=== PATIENT | female | born 1975 | race Caucasian/White ===

== ENCOUNTER 2016-06-05 12:21 | Emergency (ER) | payer MEDICAID, OTHER ==
[2016-06-05 12:28] VITALS: BP 133/83
[2016-06-05] MEDS ORDERED: Ketorolac INJ* 60 MG/2 ML VIAL IM ONE (13:33)
--- NOTE | 2016-06-10 22:16 | ED ---
Throat Pain/Nasal Congestion - HPI Summary HPI Summary: Pt here w/ B/L otalgia x 3 days. Here because she can't control the pain and now has otorrhea. Has tried garlic drops and tylenol w/o relief. Hearing is muffled. Denies ST, sinus pressure, rhinorrhea, cough, n/v/d, rash. No trauma to ears. - History of Current Complaint Chief Complaint: EDEarPain Time Seen by Provider: 06/05/16 12:47 Hx Obtained From: Patient - Allergies/Home Medications Allergies/Adverse Reactions: Allergies Allergy/AdvReac Type Severity Reaction Status Date / Time No Known Allergies Allergy Verified 08/25/15 21:31 PMH/Surg Hx/FS Hx/Imm Hx Previously Healthy: Yes Endocrine/Hematology History: Denies: Autoimmune Disease Respiratory History: Reports: Hx Asthma, Hx Chronic Bronchitis, Hx Pneumonia Sensory History: Denies: Hx Hearing Problem Infectious Disease History: No Infectious Disease History: Denies: Traveled Outside the [place] in Last 30 Days - Family History Known Family History: Positive: None - reviewed & noncontributory - Social History Alcohol Use: None Hx Substance Use: No Substance Use Type: Reports: None Hx Tobacco Use: Yes Smoking Status (MU): Current Every Day Smoker Review of Systems Negative: Fever, Chills Eyes: Negative ENT: Other - see HPI Negative: Chest Pain Negative: Shortness Of Breath, Cough Gastrointestinal: Negative Positive: no symptoms reported Musculoskeletal: Other - denies neck pain Negative: Rash Neurological: Negative Psychological: Normal All Other Systems Reviewed And Are Negative: Yes Physical Exam Triage Information Reviewed: Yes Vital Signs On Initial Exam: Initial Vitals Temp Pulse Resp BP Pulse Ox 97.9 F 84 18 133/83 100 06/05/16 12:24 06/05/16 12:24 06/05/16 12:24 06/05/16 12:24 06/05/16 12:24 Vital Signs Reviewed: Yes Appearance: Positive: Well-Appearing, No Pain Distress - has a one time pain attack - lasts a few minutes then dissipates, Well-Nourished Skin: Positive: Warm, Dry - no erythema of pinna or scalp Head/Face: Positive: Normal Head/Face Inspection - sinuses NTTP Eyes: Positive: Normal, EOMI, Conjunctiva Clear. Negative: Conjunctiva Inflammed, Discharge ENT: Positive: Hearing grossly normal, Pharynx normal, TM red - otorrhea w/ purulent pink tinged fluid w/ bubbles overlying B/L TM's. Negative: Nasal congestion, Nasal drainage Dental: Negative: Abscess @ Neck: Positive: Supple, Enlarged Nodes @ - cc Ln's (mild) Respiratory/Lung Sounds: Positive: Clear to Auscultation, Breath Sounds Present. Negative: Rales, Rhonchi, Wheezes Cardiovascular: Positive: Normal, RRR Abdomen Description: Positive: Nontender, Soft Bowel Sounds: Positive: Present Musculoskeletal: Positive: Normal, Strength/ROM Intact Neurological: Positive: Normal, Sensory/Motor Intact, Alert, Oriented to Person Place, Time, CN Intact II-III Psychiatric: Positive: Normal Diagnostics - Vital Signs Vital Signs Temp Pulse Resp BP Pulse Ox 06/05/16 14:01 99.2 F 74 16 06/05/16 12:24 97.9 F 84 18 133/83 100 - Laboratory Lab Statement: Any lab studies that have been ordered have been reviewed, and results considered in the medical decision making process. EENT Course/Dx - Diagnoses Provider Diagnoses: Acute serous otitis media of both ears Discharge - Discharge Plan Condition: Stable Disposition: HOME Prescriptions: Amoxicillin/Clavulanate TAB* [Augmentin TAB 875*] 875 mg PO BID #20 tab Ciprofloxacin HCl (Otic) [Cetraxal] 0.2 % OT Q12HR #1 bottle Ketorolac TAB (NF) [Toradol TAB (NF)] 10 mg PO Q6H #20 tab Patient Education Materials: Serous Otitis Media (ED) Referrals: Gary Hensley MD [Medical Doctor] - No Primary Care Phys,NOPCP [Primary Care Provider] - Additional Instructions: Follow-up with ENT this week - call Monday to schedule an appointment. *If you develop severe headache, hearing loss, change in balance, fever, difficulty swallowing/breathing, return to ED
== END 2016-06-05 14:01 | disposition home or self-care (01) ==
LOC: ED 12:21
DX: H65.03 Acute serous otitis media, bilateral (principal); F17.200 Nicotine dependence, unspecified, uncomplicated
CPT/HCPCS: 96372; 99282; J1885

== ENCOUNTER 2016-11-17 11:21 | Emergency (ER) | payer SELFPAY ==
--- NOTE | 2016-11-17 15:51 | ED ---
HPI Cardiac - HPI Summary HPI Summary: Pt here w/ cough x 2 weeks. Started as URI - ST, head/nasal congestion - then went into chest w/ cough. Has not tried anything for cough. H/o bronchitis and pneumonia once. Has required albuterol inhaler in the past. Smokes - wants to quit - would like to try a patch while she's here today. Smokes "a couple a day ". - History of Current Complaint Chief Complaint: EDGeneral Stated Complaint: CHEST COLD Time Seen by Provider: 11/17/16 13:32 Hx Obtained From: Patient Pain Intensity: 2 - Allergy/Home Medications Allergies/Adverse Reactions: Allergies Allergy/AdvReac Type Severity Reaction Status Date / Time No Known Allergies Allergy Verified 11/29/16 16:53 PMH/Surg Hx/FS Hx/Imm Hx Previously Healthy: Yes Endocrine/Hematology History: Denies: Autoimmune Disease Respiratory History: Reports: Hx Asthma, Hx Chronic Bronchitis, Hx Pneumonia Sensory History: Denies: Hx Hearing Problem Infectious Disease History: No Infectious Disease History: Denies: Traveled Outside the in Last 30 Days - Social History Alcohol Use: None Hx Substance Use: No Substance Use Type: Reports: None Hx Tobacco Use: Yes Smoking Status (MU): Current Every Day Smoker Amount Used/How Often: "a couple a day" Review of Systems Constitutional: Negative Negative: Fever, Chills ENT: Other - see HPI Negative: Chest Pain Respiratory: Other - see HPI Gastrointestinal: Negative Negative: Abdominal Pain, Vomiting, Diarrhea, Nausea Positive: no symptoms reported Musculoskeletal: Negative Skin: Negative Negative: Rash Neurological: Negative Psychological: Other - seE HPI All Other Systems Reviewed And Are Negative: Yes Physical Exam Triage Information Reviewed: Yes Vital Signs On Initial Exam: Initial Vitals Temp Pulse Resp BP Pulse Ox 98.6 F 92 22 126/80 98 11/17/16 11:23 11/17/16 11:23 11/17/16 11:23 11/17/16 11:23 11/17/16 11:23 Vital Signs Reviewed: Yes Appearance: Positive: Well-Appearing, No Pain Distress, Well-Nourished Skin: Positive: Warm, Dry Head/Face: Positive: Normal Head/Face Inspection - SINUSES nttp Eyes: Positive: Normal, EOMI, Conjunctiva Clear. Negative: Conjunctiva Inflammed, Discharge ENT: Positive: Hearing grossly normal, Pharynx normal, Nasal congestion, Nasal drainage - CLEAR, TMs normal Neck: Positive: Supple, Nontender, No Lymphadenopathy Respiratory/Lung Sounds: Positive: Clear to Auscultation, Breath Sounds Present. Negative: Rales, Rhonchi, Wheezes Cardiovascular: Positive: Normal, RRR Abdomen Description: Positive: Nontender, Soft Bowel Sounds: Positive: Present Musculoskeletal: Positive: Normal, Strength/ROM Intact Neurological: Positive: Normal, Sensory/Motor Intact, Alert, Oriented to Person Place, Time, CN Intact II-III Psychiatric: Positive: Normal Diagnostics - Vital Signs Vital Signs Temp Pulse Resp BP Pulse Ox 11/17/16 13:30 98.6 F 92 22 126/80 97 11/17/16 11:23 98.6 F 92 22 126/80 98 - Laboratory Lab Statement: Any lab studies that have been ordered have been reviewed, and results considered in the medical decision making process. Disposition - Diagnoses Provider Diagnoses: Bronchitis, Tobacco abuse Discharge - Discharge Plan Condition: Stable Disposition: HOME Prescriptions: Albuterol HFA INHALER* [Ventolin HFA Inhaler*] 2 puff INH Q6H PRN #1 mdi PRN Reason: Cough Patient Education Materials: How to Stop Smoking (ED), Acute Bronchitis (ED) Referrals: [facility] [Outside] No Primary Care Phys,NOPCP [Primary Care Provider] - Additional Instructions: Rest, fluids Avoid potential triggers - candles, smoke, perfumes, etc Use albuterol inhaler as needed Delsym cough suppressant You may also try the following: Nasal wash (netti pot) & throat gargle 2 x day with 8 ounces of warm water + 1/ 4 teaspoon of salt Drink 60+ ounces of water daily Sleep 8+ hours per night Avoid Dairy and sugar Hot herbal/decaf tea with lemon & honey Chicken broth (preferably organic, free range chicken) Cough lozenges Consider taking Vitamin C 1,000mg every day during illness Follow-up with PCP *if you develop fever, bloody cough, shortness of breath, chest pain, return to ED
[2016-11-17 16:18] LABS: UR Preg Internal Control QC Line Present
[2016-11-17 16:28] LABS: Manual Entry Verification MER0007
[2016-11-17 17:12] VITALS: BP 116/75
--- NOTE | 2016-11-17 17:38 | RAD ---
INDICATION: Cough x2 weeks COMPARISON: Similar chest x-ray dated August 30, 2015 TECHNIQUE: PA and lateral views of the chest were obtained. FINDINGS: The heart and mediastinum are normal in size and contour. The lungs are grossly clear. There is no evidence of large pleural effusion. Visualized bones are normal for the patient's age. There is no radiographic evidence of free air beneath the diaphragm IMPRESSION: No radiographic evidence of acute cardiopulmonary disease.
[2016-11-18] MEDS ORDERED: Nicotine PATCH 7 MG/24 HR* PATCH TRANSDERM ONE (15:29)
== END 2016-11-17 17:04 | disposition home or self-care (01) ==
LOC: ED 11:21
DX: R05 Cough (principal)
CPT/HCPCS: 71020; 81025; 99282; A9270-GY

== ENCOUNTER 2016-11-29 02:08 | Inpatient (IN) | payer MEDICAID ==
--- NOTE | 2016-11-29 02:17 | ED ---
Juliet Romo Edward, scribed for Daniele Grande MD on 11/29/16 at 0210 . Psychiatric Complaint - HPI Summary HPI Summary: 41 y/o female presents to ED c/o SI. Pt states that she has been going through a hard time with some people in her life and she feels like she just wants to . Pt states that she sees a therapist at this time - History Of Current Complaint Hx Obtained From: Patient Character: Depressed Aggravating Factor(s): Recent Stress - tough time with some people Has Suicidal: Reports: Thoughts - Allergies/Home Medications Allergies/Adverse Reactions: Allergies Allergy/AdvReac Type Severity Reaction Status Date / Time No Known Allergies Allergy Verified 08/25/15 21:31 PMH/Surg Hx/FS Hx/Imm Hx Previously Healthy: No Respiratory History: Reports: Hx Asthma, Hx Chronic Bronchitis, Hx Pneumonia Sensory History: Denies: Hx Hearing Problem - Family History Known Family History: Positive: Other - Mother - hx of ovarian cysts - Social History Alcohol Use: None Hx Substance Use: No Substance Use Type: Reports: None Hx Tobacco Use: Yes Smoking Status (MU): Current Every Day Smoker Amount Used/How Often: "a couple a day" Review of Systems Constitutional: Negative Eyes: Negative ENT: Negative Cardiovascular: Negative Respiratory: Negative Gastrointestinal: Negative Genitourinary: Negative Musculoskeletal: Negative Skin: Negative Neurological: Negative Positive: Depressed - SI All Other Systems Reviewed And Are Negative: Yes Physical Exam Triage Information Reviewed: Yes Vital Signs On Initial Exam: Initial Vitals Temp Pulse Resp BP Pulse Ox 98.1 F 73 16 121/81 99 11/29/16 02:13 11/29/16 02:13 11/29/16 02:13 11/29/16 02:13 11/29/16 02:13 Vital Signs Reviewed: Yes Appearance: Positive: Well-Appearing, No Pain Distress Skin: Positive: Warm Head/Face: Positive: Normal Head/Face Inspection Eyes: Positive: GRACIA ENT: Positive: Hearing grossly normal Neck: Positive: Supple Respiratory/Lung Sounds: Positive: Breath Sounds Present Cardiovascular: Positive: RRR Abdomen Description: Positive: Nontender, Soft Bowel Sounds: Positive: Present Musculoskeletal: Positive: Strength/ROM Intact Neurological: Positive: Alert, Oriented to Person Place, Time Psychiatric: Positive: Affect/Mood Appropriate Diagnostics - Vital Signs Vital Signs Temp Pulse Resp BP Pulse Ox 11/29/16 02:13 98.1 F 73 16 121/81 99 - Laboratory Result Diagrams: 11/29/16 02:44 11/29/16 02:44 Lab Statement: Any lab studies that have been ordered have been reviewed, and results considered in the medical decision making process. Course/Dx - Course Assessment/Plan: 41 y/o female presents to ED c/o depression and SI. Pt cleared for MHU evaluation. After assessment by the MHU manager validation, the pt will be volunatrily admitted [place] [facility] - Differential Dx/Clinical Impression Provider Diagnosis: Suicidal ideations - Physician Notifications Instructed by Provider To: Admit As Inpatient Discharge - Discharge Plan Condition: Fair Disposition: ADMITTED TO [facility] The documentation as recorded by the Juliet mccarthy Edward accurately reflects the service I personally performed and the decisions made by , Daniele Grande MD.
[2016-11-29 03:01] LABS: Urine Bacteria Absent (Absent); Urine Bilirubin Negative (Negative); Urine Glucose Negative (Negative); Urine Nitrite Negative (Negative)
[2016-11-29 03:07] LABS: Hematocrit 35 % (35-47); Hemoglobin 11.7 g/dl (12.0-16.0); Mean Corpuscular HGB Conc 33 g/dl (31-36); Mean Corpuscular Hemoglobin 31 pg (27-31); Mean Corpuscular Volume 92 fL (80-97); Mean Platelet Volume 9 um3 (7.4-10.4); Red Cell Distribution Width 14 % (10.5-15); White Blood Count 8.8 10^3/ul (3.5-10.8)
[2016-11-29 03:10] LABS: ALT 8 U/L (7-52); AST 8 U/L (13-39); Albumin 3.5 g/dL (3.2-5.2); Alkaline Phosphatase 41 U/L (34-104); Calcium 8.8 mg/dL (8.6-10.3); Glucose 93 mg/dL (70-100)
[2016-11-29 03:21] LABS: Benzodiazepine Urine Screen None Detected (None Detect)
[2016-11-29 03:21] LABS: Anion Gap 4 mmol/L (2-11); BUN/Creatinine Ratio 19.2 (8-20); Blood Urea Nitrogen 15 mg/dL (6-24); CO2 Carbon Dioxide 26 mmol/L (22-32); Chloride 106 mmol/L (101-111); EGFR African American 105.7 (>60); EGFR Non-African American 82.2 (>60); Globulin 2.4 g/dL (2-4); Potassium 3.6 mmol/L (3.5-5.0); Sodium 136 mmol/L (133-145); Total Protein 5.9 g/dL (6.4-8.9)
[2016-11-29 03:29] LABS: Acetaminophen < 15 mcg/mL; Alcohol < 10 mg/dL (<10); Salicylate < 2.50 mg/dL (<30)
[2016-11-29 03:40] LABS: TSH (Thyroid Stimulating Horm) 1.94 mcIU/mL (0.34-5.60)
[2016-11-29] MEDS: Vitamin THERAPEUTIC TAB PO SCH (09:38)
[2016-11-29] MEDS: Acetaminophen TAB* 325 MG PO PRN (11:30)
[2016-11-29] MEDS: ARIPiprazole TAB* 5 MG PO SCH (13:30)
[2016-11-29] MEDS: VORTIOXETINE 5 MG PO SCH (13:30)
[2016-11-29] MEDS: Mouth Piece, Nicotine* 1 EACH CARTRIDGE INH SCH (19:24)
[2016-11-29] MEDS: Nicotine Inhaler* 10 MG AMP INH PRN (19:25)
[2016-11-29] MEDS: hydrOXYzine HCL TAB* 50 MG PO PRN (19:25)
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
[2016-11-30] MEDS: ARIPiprazole TAB* 5 MG PO SCH (09:27)
[2016-11-30] MEDS: Vitamin THERAPEUTIC TAB PO SCH (09:27)
[2016-11-30] MEDS: VORTIOXETINE 5 MG PO SCH (09:51)
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
[2016-11-30] MEDS: Acetaminophen TAB* 325 MG PO PRN (11:32)
[2016-11-30] MEDS: FLUoxetine CAP* 10 MG PO SCH (11:59)
[2016-11-30] MEDS: hydrOXYzine HCL TAB* 50 MG PO PRN (18:27)
[2016-12-01] MEDS: FLUoxetine CAP* 10 MG PO SCH (08:42)
[2016-12-01] MEDS: Vitamin THERAPEUTIC TAB PO SCH (08:42)
[2016-12-01 08:58] LABS: HDL Cholesterol 41.3 mg/dL
[2016-12-01] MEDS ORDERED: ARIPiprazole TAB* 5 MG PO SCH (09:00)
--- NOTE | 2016-12-01 11:51 | PN ---
Subjective - Subjective Subjective: Diana is lying in her bed awake. She agrees to interview. She states she is feeling like she has nothing to look forward to. She states "I can't trust anyone" and "they took everything." She has not performed ADLs. She is present for meals but not groups. She reports poor sleep due to "someone talking in my head." She states she is going to kill herself as soon as she is discharged. Objective - Appearance Appearance: Thin Framed Dysmorphic Features: Yes Hygiene: Dirty Grooming: Disheveled - Behavior Psychomotor Activities: Normal Exhibits Abnormal Movement: No - Attitude and Relatedness Attitude and Relatedness: Psychotically Related Eye Contact: Fair - Speech Quality: Pressured Latencies: Normal Quantity: Terse - Mood Patient's Decription of Mood: "I have nothing to look forward to" - Affect Observed Affect: Labile Affect Consistent with: Dysphoria - Thought Process Patient's Thought Process: Disorganized, Tangential Thought Content: Yes Passive Wish, Yes Suicidal Planning, Yes Paranoid Ideation, No Homicidal Ideation - Sensorium Experiencing Hallucinations: Yes Type of Hallucinations: Visual: No, Auditory: Yes, Command: No - Level of Consciousness Level of Consciousness: Alert Orientation: Yes Intact, Yes Orientated to Time, Yes Orientated to Place, Yes Orientated to Person - Impulse Control Impulse Control: Impaired - Insight and Judgement Insight and Judgement: Poor - Group Participation Particating in Group Activities: No Assessment - Assessment Merits Inpatient Hospitalization: For Immediate Safety, For Stabilization, Pending Safe DC Plan Inpatient DSM-IV Dx: schizoaffective d/o Clinical Impression: Diana is a 41yo female with history of psychosis and substance use. Her toxicology was negative in the ED. She has been intermittently present at [facility] and has had multiple brief psychiatric hospitalizations in the [facility]. Diana continues to present as disorganized, paranoid and labile. She is expressing active suicidal ideation. Plan - Plan Treatment Plan: Name: DIANA LIN Birthdate: 1975 [id number] Will continue to titrate aripiprazole and assess for improvement in psychosis/ suicidality. She is encouraged to perform ADLs and utilize prn medications. Discharge planning to include mother and consider transfer to state hospitalization if no improvement. Continued Medication Management: Different Medication Medications: Current Medications Acetaminophen (Tylenol Tab*) 650 mg PO Q4H PRN PRN Reason: PAIN or TEMP > 101 F Last Admin: 11/30/16 11:32 Dose: 650 mg Al Hydrox/Mg Hydrox/Simethicone (Maalox Plus*) 30 ml PO Q4H PRN PRN Reason: INDIGESTION Aripiprazole (Abilify Tab*) 5 mg PO ONCE ONE Stop: 12/01/16 21:01 Aripiprazole (Abilify Tab*) 15 mg PO DAILY [facility] Device (Nicotine Mouth Piece*) 1 each INH .CARTRIDGE [facility] Last Admin: 11/29/16 19:24 Dose: 1 each Fluoxetine HCl (Prozac Cap*) 10 mg PO DAILY [facility] Last Admin: 12/01/16 08:42 Dose: 10 mg Hydroxyzine HCl (Atarax Tab*) 50 mg PO Q6H PRN PRN Reason: ANXIETY/INSOMNIA Last Admin: 11/30/16 18:27 Dose: 50 mg Multivitamins (Theragran Tab*) 1 tab PO DAILY [facility] Last Admin: 12/01/16 08:42 Dose: 1 tab Nicotine (Nicotine Inhaler*) 10 mg INH Q2H PRN PRN Reason: CRAVING Last Admin: 11/29/16 19:25 Dose: 10 mg Trazodone HCl (Desyrel Tab*) 50 mg PO BEDTIME PRN PRN Reason: INSOMNIA - Discharge Plan Discharge Plan: Consider Longer Term Tx Outpatient Program: [facility]
[2016-12-01] MEDS: hydrOXYzine HCL TAB* 50 MG PO PRN (12:55)
[2016-12-01] MEDS: Acetaminophen TAB* 325 MG PO PRN (15:44)
[2016-12-01] MEDS ORDERED: ARIPiprazole TAB* 5 MG PO ONE (21:00)
[2016-12-01] MEDS: traZODone TAB* 50 MG TAB PO PRN (21:10)
[2016-12-02] MEDS: Vitamin THERAPEUTIC TAB PO SCH (10:04)
[2016-12-02] MEDS: FLUoxetine CAP* 10 MG PO SCH (10:04)
[2016-12-02] MEDS: ARIPiprazole TAB* 15 MG PO SCH (10:04)
--- NOTE | 2016-12-02 12:07 | PN ---
Subjective - Subjective Subjective: Diana continues to have labile presentation. She is seclusive to her room, present for meals. Staff has witnessed her having conversations to herself in her room. She has not completed ADLs. She reports plans to shower today after "my layton is done" and refers to menstrual cycle. She reports "I have nothing to look forward to" and continues to endorse persecutory delusions. She brightens when talking about hospital food. When she was encouraged to attend programming, she is tearful again and expressed "nothing to live for." Patient reports she is sleeping better and that nightmares are not as prevalent. Objective - Appearance Appearance: Well Developed/Nourished Dysmorphic Features: Yes Hygiene: Dirty Grooming: Disheveled - Behavior Psychomotor Activities: Normal Exhibits Abnormal Movement: No - Attitude and Relatedness Attitude and Relatedness: Psychotically Related Eye Contact: Fair - Speech Quality: Unpressured Latencies: Normal Quantity: Appropriate - Mood Patient's Decription of Mood: "Terrible" - Affect Observed Affect: Labile Affect Consistent with: Dysphoria - Thought Process Patient's Thought Process: Disorganized, Tangential Thought Content: Yes Passive Wish, Yes Suicidal Planning, No Homicidal Ideation, No Paranoid Ideation - Sensorium Experiencing Hallucinations: Yes Type of Hallucinations: Visual: Yes, Auditory: Yes, Command: No - Level of Consciousness Level of Consciousness: Alert Orientation: Yes Intact, Yes Orientated to Time, Yes Orientated to Place, Yes Orientated to Person - Impulse Control Impulse Control: Poor - Insight and Judgement Insight and Judgement: Poor - Group Participation Particating in Group Activities: No - Medication Management Medication Management Adherence: Yes Assessment - Assessment Inpatient DSM-IV Dx: schizoaffective d/o Clinical Impression: Diana is a 41yo female with history of psychosis and substance use. Her toxicology was negative in the ED. She has been intermittently present at [facility] and has had multiple brief psychiatric hospitalizations in the [facility] region. Diana continues to present as disorganized, paranoid and labile. She is medication compliant but seclusive to self. Plan - Plan Treatment Plan: Name: DIANA ILN Birthdate: 1975 [id number] Will continue to titrate aripiprazole and assess for improvement in psychosis/ suicidality. She is encouraged to perform ADLs and utilize prn medications. Discharge planning to include mother and consider transfer to state hospitalization if no improvement. Continued Medication Management: Consider Medication Medications: Current Medications Acetaminophen (Tylenol Tab*) 650 mg PO Q4H PRN PRN Reason: PAIN or TEMP > 101 F Last Admin: 12/01/16 15:44 Dose: 650 mg Al Hydrox/Mg Hydrox/Simethicone (Maalox Plus*) 30 ml PO Q4H PRN PRN Reason: INDIGESTION Aripiprazole (Abilify Tab*) 15 mg PO DAILY [facility] Last Admin: 12/02/16 10:04 Dose: 15 mg Device (Nicotine Mouth Piece*) 1 each INH .CARTRIDGE [facility] Last Admin: 11/29/16 19:24 Dose: 1 each Fluoxetine HCl (Prozac Cap*) 10 mg PO DAILY [facility] Last Admin: 12/02/16 10:04 Dose: 10 mg Hydroxyzine HCl (Atarax Tab*) 50 mg PO Q6H PRN PRN Reason: ANXIETY/INSOMNIA Last Admin: 12/01/16 12:55 Dose: 50 mg Multivitamins (Theragran Tab*) 1 tab PO DAILY [facility] Last Admin: 12/02/16 10:04 Dose: 1 tab Nicotine (Nicotine Inhaler*) 10 mg INH Q2H PRN PRN Reason: CRAVING Last Admin: 11/29/16 19:25 Dose: 10 mg Trazodone HCl (Desyrel Tab*) 50 mg PO BEDTIME PRN PRN Reason: INSOMNIA Last Admin: 12/01/16 21:10 Dose: 50 mg - Discharge Plan Discharge Plan: Consider Longer Term Tx Outpatient Program: consider state hospitalization
[2016-12-02] MEDS: hydrOXYzine HCL TAB* 50 MG PO PRN (14:41)
[2016-12-02] MEDS: Acetaminophen TAB* 325 MG PO PRN (18:38)
[2016-12-02] MEDS: traZODone TAB* 50 MG TAB PO PRN (21:36)
[2016-12-03] MEDS: FLUoxetine CAP* 10 MG PO SCH (09:12)
[2016-12-03] MEDS: Vitamin THERAPEUTIC TAB PO SCH (09:12)
[2016-12-03] MEDS: ARIPiprazole TAB* 15 MG PO SCH (09:12)
[2016-12-03] MEDS: hydrOXYzine HCL TAB* 50 MG PO PRN ×2 (11:50→17:45)
--- NOTE | 2016-12-03 17:23 | PN ---
Subjective - Subjective Subjective: Diana reports that she has been catching up on sleep, endorses continued sad mood, spontaneously voices paranoid and persecutory delusions, denies SI/HI and contracts for safety. Objective - Appearance Appearance: Healthy Appearing Dysmorphic Features: No Hygiene: Normal Grooming: Disheveled - Behavior Psychomotor Activities: Normal Exhibits Abnormal Movement: No - Attitude and Relatedness Attitude and Relatedness: Psychotically Related Eye Contact: Fair - Speech Quality: Unpressured Latencies: Short Quantity: Appropriate - Mood Patient's Decription of Mood: "Sad" - Affect Observed Affect: Non-labile Affect Consistent with: Dysphoria - Thought Process Patient's Thought Process: Coherent Thought Content: Yes Paranoid Ideation, No Passive Wish, No Suicidal Planning, No Homicidal Ideation - Sensorium Experiencing Hallucinations: No, Sensorium is Clear - Level of Consciousness Level of Consciousness: Alert Orientation: Yes Intact - Impulse Control Impulse Control: Intact - Insight and Judgement Insight and Judgement: Impaired - Group Participation Particating in Group Activities: No - Medication Management Medication Management Adherence: Yes Assessment - Assessment Inpatient DSM-IV Dx: schizoaffective d/o Clinical Impression: Ongoing impaired mood and psychotic symptoms, tolerating trial of Aripiprazole. She needs continued admission for stabilization. Plan - Plan Treatment Plan: Name: DIANA LIN Birthdate: 1975 [id number] Medications: Current Medications Acetaminophen (Tylenol Tab*) 650 mg PO Q4H PRN PRN Reason: PAIN or TEMP > 101 F Last Admin: 12/02/16 18:38 Dose: 650 mg Al Hydrox/Mg Hydrox/Simethicone (Maalox Plus*) 30 ml PO Q4H PRN PRN Reason: INDIGESTION Aripiprazole (Abilify Tab*) 15 mg PO DAILY [facility] Last Admin: 12/03/16 09:12 Dose: 15 mg Device (Nicotine Mouth Piece*) 1 each INH .CARTRIDGE [facility] Last Admin: 11/29/16 19:24 Dose: 1 each Fluoxetine HCl (Prozac Cap*) 10 mg PO DAILY [facility] Last Admin: 12/03/16 09:12 Dose: 10 mg Hydroxyzine HCl (Atarax Tab*) 50 mg PO Q6H PRN PRN Reason: ANXIETY/INSOMNIA Last Admin: 12/03/16 11:50 Dose: 50 mg Multivitamins (Theragran Tab*) 1 tab PO DAILY [facility] Last Admin: 12/03/16 09:12 Dose: 1 tab Nicotine (Nicotine Inhaler*) 10 mg INH Q2H PRN PRN Reason: CRAVING Last Admin: 11/29/16 19:25 Dose: 10 mg Trazodone HCl (Desyrel Tab*) 50 mg PO BEDTIME PRN PRN Reason: INSOMNIA Last Admin: 12/02/16 21:36 Dose: 50 mg - Discharge Plan Discharge Plan: Outpatient Follow Up Outpatient Program: [facility]
[2016-12-03] MEDS: Nicotine Inhaler* 10 MG AMP INH PRN (17:45)
[2016-12-03] MEDS: traZODone TAB* 50 MG TAB PO PRN (21:30)
[2016-12-04] MEDS: FLUoxetine CAP* 10 MG PO SCH (09:06)
[2016-12-04] MEDS: ARIPiprazole TAB* 15 MG PO SCH (09:06)
[2016-12-04] MEDS: Vitamin THERAPEUTIC TAB PO SCH (09:06)
[2016-12-04] MEDS: Nicotine Inhaler* 10 MG AMP INH PRN ×2 (11:53→17:30)
[2016-12-04] MEDS: hydrOXYzine HCL TAB* 50 MG PO PRN (17:14)
[2016-12-04] MEDS: Acetaminophen TAB* 325 MG PO PRN (17:28)
[2016-12-04] MEDS: traZODone TAB* 50 MG TAB PO PRN (20:56)
[2016-12-05] MEDS: FLUoxetine CAP* 10 MG PO SCH (08:31)
[2016-12-05] MEDS: ARIPiprazole TAB* 15 MG PO SCH ×2 (08:31→21:45)
[2016-12-05] MEDS: Vitamin THERAPEUTIC TAB PO SCH (08:31)
[2016-12-05] MEDS: Nicotine Inhaler* 10 MG AMP INH PRN ×4 (08:34→18:08)
--- NOTE | 2016-12-05 10:57 | PN ---
Subjective - Subjective Subjective: Diana has been primarily seclusive to self and intermittently participating in groups. She continues to perseverate on friends who have sabotaged her. She states she is "feeling a lot better" during interview. She attributes this to doing yoga this morning and her mother getting her belongings from her apartment in [place]. Patient reports little knowledge about her diagnosis. She changes the subject to wanting to obtain housing, a job and to abstain from people who are not supportive of her. She states "I need some serious yoga in my life right now." Patient is knowledgeable about her medication regimen. She requests to take aripiprazole at bedtime due to sedation. She states hydroxyzine is ineffective and makes her "shaky." She reports past use of xanax or klonopin. She states she only used 0.25mg sparingly. Objective - Appearance Appearance: Well Developed/Nourished Dysmorphic Features: No Hygiene: Normal Grooming: Fairly Well Kept - Behavior Psychomotor Activities: Abnormal-Increased - fidgety, moves position often Exhibits Abnormal Movement: Yes - Attitude and Relatedness Attitude and Relatedness: Psychotically Related Eye Contact: Good - Speech Quality: Pressured Latencies: Normal Quantity: Copious - Mood Patient's Decription of Mood: "a lot better" - Affect Observed Affect: Fair Affect Consistent with: Euthymia - Thought Process Patient's Thought Process: Loose Associations, Tangential Thought Content: No Passive Wish, No Suicidal Planning, No Homicidal Ideation, No Paranoid Ideation - Sensorium Experiencing Hallucinations: No, Sensorium is Clear - denies AH/VH Type of Hallucinations: Visual: No, Auditory: No, Command: No - Level of Consciousness Level of Consciousness: Alert Orientation: Yes Intact, Yes Orientated to Time, Yes Orientated to Place, Yes Orientated to Person Assessment - Assessment Merits Inpatient Hospitalization: For Immediate Safety, For Stabilization, For Discharge Planning Inpatient DSM-IV Dx: schizoaffective d/o Clinical Impression: Diana is a 41yo female with history of psychosis and substance use. Her toxicology was negative in the ED. She has been intermittently present at [facility] and has had multiple brief psychiatric hospitalizations in the [facility] region. Diana continues to present as paranoid with little insight. She merits hospitalization for safety and stabilization. Plan - Plan Treatment Plan: Name: DIANA LIN Birthdate: 1975 [id number] Will continue aripiprazole and assess for improvement in psychosis. Will change from hydroxyzine to low dose clonazepam prn for anxiety/agitation. Discharge planning to include mother and consider transfer to state hospitalization if no improvement. Continued Medication Management: Different Medication Medications: Current Medications Acetaminophen (Tylenol Tab*) 650 mg PO Q4H PRN PRN Reason: PAIN or TEMP > 101 F Last Admin: 12/04/16 17:28 Dose: 650 mg Al Hydrox/Mg Hydrox/Simethicone (Maalox Plus*) 30 ml PO Q4H PRN PRN Reason: INDIGESTION Aripiprazole (Abilify Tab*) 15 mg PO BEDTIME [facility] Clonazepam (Klonopin Tab(*)) 0.5 mg PO BID PRN PRN Reason: AGITATION/ANXIETY Device (Nicotine Mouth Piece*) 1 each INH .CARTRIDGE [facility] Last Admin: 11/29/16 19:24 Dose: 1 each Fluoxetine HCl (Prozac Cap*) 10 mg PO DAILY [facility] Last Admin: 12/05/16 08:31 Dose: 10 mg Multivitamins (Theragran Tab*) 1 tab PO DAILY [facility] Last Admin: 12/05/16 08:31 Dose: 1 tab Nicotine (Nicotine Inhaler*) 10 mg INH Q2H PRN PRN Reason: CRAVING Last Admin: 12/05/16 08:34 Dose: 10 mg Trazodone HCl (Desyrel Tab*) 50 mg PO BEDTIME PRN PRN Reason: INSOMNIA Last Admin: 12/04/16 20:56 Dose: 50 mg - Discharge Plan Discharge Plan: Consider Longer Term Tx Outpatient Program: [facility]
[2016-12-05] MEDS: clonazePAM TAB(*) 0.5 MG PO PRN (12:48)
[2016-12-05] MEDS: traZODone TAB* 50 MG TAB PO PRN (21:46)
[2016-12-06] MEDS: FLUoxetine CAP* 10 MG PO SCH (08:16)
[2016-12-06] MEDS: Vitamin THERAPEUTIC TAB PO SCH (08:16)
[2016-12-06] MEDS: Nicotine Inhaler* 10 MG AMP INH PRN ×4 (08:17→18:48)
[2016-12-06] MEDS ORDERED: Mouth Piece, Nicotine* 1 EACH CARTRIDGE ONE (12:43)
[2016-12-06] MEDS: clonazePAM TAB(*) 0.5 MG PO PRN (12:44)
[2016-12-06] MEDS: Mouth Piece, Nicotine* 1 EACH CARTRIDGE INH SCH (12:44)
--- NOTE | 2016-12-06 15:02 | PN ---
Subjective - Subjective Service Type: 81360 Hosp care 15 min low complexity Subjective: Patient is pleasant and euthymic. She reports "klonopin helped a lot." She endorses decrease in anxiety and states she had restful sleep. She goes on to describe many goals for herself and states that she acknowledges that longer term hospitalization "is the best for me." She states that afterwards, she wants to pursue living in the [facility] system. She states she wants to enroll at [facility] for spring and apply for social security. Objective - Appearance Appearance: Well Developed/Nourished Dysmorphic Features: Yes Hygiene: Normal Grooming: Fairly Well Kept - Behavior Psychomotor Activities: Normal Exhibits Abnormal Movement: No - Attitude and Relatedness Attitude and Relatedness: Psychotically Related Eye Contact: Good - Speech Quality: Pressured Latencies: Normal Quantity: Appropriate - Mood Patient's Decription of Mood: "better" - Affect Observed Affect: Labile - Thought Process Patient's Thought Process: Filght of Ideas Thought Content: No Passive Wish, No Suicidal Planning, No Homicidal Ideation, No Paranoid Ideation - Sensorium Experiencing Hallucinations: No, Sensorium is Clear Type of Hallucinations: Visual: No, Auditory: No, Command: No - Level of Consciousness Level of Consciousness: Alert Orientation: Yes Intact, Yes Orientated to Time, Yes Orientated to Place, Yes Orientated to Person - Impulse Control Impulse Control: Tenuous - Insight and Judgement Insight and Judgement: Poor - Group Participation Particating in Group Activities: Yes - Medication Management Medication Management Adherence: Yes Assessment - Assessment Inpatient DSM-IV Dx: schizoaffective d/o Clinical Impression: Diana is a 41yo female with history of psychosis and substance use. Her toxicology was negative in the ED. She has been intermittently present at [facility] and has had multiple brief psychiatric hospitalizations in the [facility]. She is agreeable to a referral for joint terminal attack controller hospitalization for stabilization. Plan - Plan Treatment Plan: Name: DIANA LIN Birthdate: 1975 [id number] Will continue aripiprazole and assess for improvement in psychosis. Will continue low dose clonazepam prn for anxiety/agitation. Referral to [facility] pending for stabilization. Continued Medication Management: Start Medication Medications: Current Medications Acetaminophen (Tylenol Tab*) 650 mg PO Q4H PRN PRN Reason: PAIN or TEMP > 101 F Last Admin: 12/04/16 17:28 Dose: 650 mg Al Hydrox/Mg Hydrox/Simethicone (Maalox Plus*) 30 ml PO Q4H PRN PRN Reason: INDIGESTION Aripiprazole (Abilify Tab*) 15 mg PO BEDTIME [facility] Last Admin: 12/05/16 21:45 Dose: 15 mg Clonazepam (Klonopin Tab(*)) 0.5 mg PO BID PRN PRN Reason: AGITATION/ANXIETY Last Admin: 12/06/16 12:44 Dose: 0.5 mg Device (Nicotine Mouth Piece*) 1 each INH .CARTRIDGE [facility] Last Admin: 12/06/16 12:44 Dose: 1 each Fluoxetine HCl (Prozac Cap*) 10 mg PO DAILY [facility] Last Admin: 12/06/16 08:16 Dose: 10 mg Multivitamins (Theragran Tab*) 1 tab PO DAILY [facility] Last Admin: 12/06/16 08:16 Dose: 1 tab Nicotine (Nicotine Inhaler*) 10 mg INH Q2H PRN PRN Reason: CRAVING Last Admin: 12/06/16 12:44 Dose: 10 mg Trazodone HCl (Desyrel Tab*) 50 mg PO BEDTIME PRN PRN Reason: INSOMNIA Last Admin: 12/05/16 21:46 Dose: 50 mg - Discharge Plan Discharge Plan: Consider Longer Term Tx - referral to [facility]
[2016-12-06] MEDS: ARIPiprazole TAB* 15 MG PO SCH (20:36)
[2016-12-06] MEDS: traZODone TAB* 50 MG TAB PO PRN (20:37)
[2016-12-07] MEDS: Nicotine Inhaler* 10 MG AMP INH PRN ×3 (07:47→15:23)
[2016-12-07] MEDS: FLUoxetine CAP* 10 MG PO SCH (07:48)
[2016-12-07] MEDS: Vitamin THERAPEUTIC TAB PO SCH (07:48)
[2016-12-07] MEDS: clonazePAM TAB(*) 0.5 MG PO PRN ×2 (11:00→16:35)
--- NOTE | 2016-12-07 13:11 | PN ---
[facility]: Group Therapy Note - Service Type Service Type: [id number] Group Psychotherapy - Cognitive Behavioral Group Therapy ( CBT):Patient was attentive and participatory in CBT programming this morning, and remained in good behavioral control. Patient expressed positive insights regarding relevant treatment interventions and goals.
--- NOTE | 2016-12-07 17:22 | PN ---
Subjective - Subjective Service Type: 50142 Hosp care 15 min low complexity Subjective: Patient lying on the couch in the milieu on my approach. She is calm, cooperative, and pleasant throughout the interview. Patient is linear and GD in TP and full in affect. Patient reports ongoing improved mood on current psychotropic regimen. She denies med s/e. Patient aware transfer process to [facility] has been initiated. She is concerned about her admission and afraid she will be there for months. Patient reports desire to initiate disability applications as she has had multiple lost jobs recently due to her MH issues. She is amenable to further MH care at [facility]. She denies SI/HI and AH/VH. Patient expresses no delusional thoughts during interview. Sleep and appetite are wnl. Objective - Appearance Appearance: Well Developed/Nourished Dysmorphic Features: No Hygiene: Normal Grooming: Well Kept - Behavior Psychomotor Activities: Normal Exhibits Abnormal Movement: No - Attitude and Relatedness Attitude and Relatedness: Cooperative Eye Contact: Fair - Speech Quality: Unpressured Latencies: Normal Quantity: Appropriate - Mood Patient's Decription of Mood: "Anxious" - Affect Observed Affect: Tense Affect Consistent with: Dysphoria - Thought Process Patient's Thought Process: Coherent Thought Content: No Passive Wish, No Suicidal Planning, No Homicidal Ideation, No Paranoid Ideation - Sensorium Experiencing Hallucinations: No, Sensorium is Clear Type of Hallucinations: Visual: No, Auditory: No, Command: No - Level of Consciousness Level of Consciousness: Alert Orientation: Yes Intact, Yes Orientated to Time, Yes Orientated to Place, Yes Orientated to Person - Impulse Control Impulse Control: Intact - Insight and Judgement Insight and Judgement: Fair - Group Participation Particating in Group Activities: Yes - Medication Management Medication Management Adherence: Yes Assessment - Assessment Merits Inpatient Hospitalization: For Immediate Safety, For Stabilization Inpatient DSM-IV Dx: schizoaffective d/o Plan - Plan Treatment Plan: Name: IRLANDA LIN Birthdate: 1975 [id number] 1. Continue current psychotropic med regimen as ordered. 2. Pending transfer to [facility] for long-term MH care. 3. Patient to continue participation in groups and milieu activities. Continued Medication Management: Different Medication Medications: Current Medications Acetaminophen (Tylenol Tab*) 650 mg PO Q4H PRN PRN Reason: PAIN or TEMP > 101 F Last Admin: 12/04/16 17:28 Dose: 650 mg Al Hydrox/Mg Hydrox/Simethicone (Maalox Plus*) 30 ml PO Q4H PRN PRN Reason: INDIGESTION Aripiprazole (Abilify Tab*) 15 mg PO BEDTIME [facility] Last Admin: 12/06/16 20:36 Dose: 15 mg Clonazepam (Klonopin Tab(*)) 0.5 mg PO BID PRN PRN Reason: AGITATION/ANXIETY Last Admin: 12/07/16 16:35 Dose: 0.5 mg Device (Nicotine Mouth Piece*) 1 each INH .CARTRIDGE [facility] Last Admin: 12/06/16 12:44 Dose: 1 each Fluoxetine HCl (Prozac Cap*) 10 mg PO DAILY [facility] Last Admin: 12/07/16 07:48 Dose: 10 mg Multivitamins (Theragran Tab*) 1 tab PO DAILY [facility] Last Admin: 12/07/16 07:48 Dose: 1 tab Nicotine (Nicotine Inhaler*) 10 mg INH Q2H PRN PRN Reason: CRAVING Last Admin: 12/07/16 15:23 Dose: 10 mg Trazodone HCl (Desyrel Tab*) 50 mg PO BEDTIME PRN PRN Reason: INSOMNIA Last Admin: 12/06/16 20:37 Dose: 50 mg - Discharge Plan Discharge Plan: Inpatient Hospitalization
[2016-12-07] MEDS: ARIPiprazole TAB* 15 MG PO SCH (23:05)
[2016-12-08] MEDS: FLUoxetine CAP* 10 MG PO SCH (08:08)
[2016-12-08] MEDS: Vitamin THERAPEUTIC TAB PO SCH (08:08)
[2016-12-08] MEDS: Nicotine Inhaler* 10 MG AMP INH PRN (08:09)
[2016-12-08] MEDS: clonazePAM TAB(*) 0.5 MG PO PRN (11:02)
--- NOTE | 2016-12-08 15:41 | PN ---
Subjective - Subjective Service Type: [id number] Hosp care 15 min low complexity Subjective: Patient noted to be visible in the milieu, social with peers, and participating in groups and milieu activities. Patient again is full in affect, calm, and cooperative/ engaging with interview. Patient reports her mood today as "bored". She reports he is an "on the go" type of person. She reports improved depressed mood. She endorses ongoing poor sleep and energy. She reports she did not take PRN Trazodone oredered, but will likely do so tonight. Appetite is wnl. Patient reports med compliance and denies s/e's. Patient is interested in computer access as she'd like to initiate her online application of [employer]. Patient again is linear and GD in . She reports she was informed she will likely be admitted to [facility] next week. She again has expressed no delusional thought on interview. Patient denies SI/ HI and AH/VH. Objective - Appearance Appearance: Well Developed/Nourished Dysmorphic Features: No Hygiene: Normal Grooming: Fairly Well Kept - Behavior Psychomotor Activities: Normal Exhibits Abnormal Movement: No - Attitude and Relatedness Attitude and Relatedness: Cooperative Eye Contact: Good - Speech Quality: Unpressured Latencies: Normal Quantity: Appropriate - Mood Patient's Decription of Mood: "bored" - Affect Observed Affect: Fair Affect Consistent with: Dysphoria - Thought Process Patient's Thought Process: Coherent Thought Content: No Passive Wish, No Suicidal Planning, No Homicidal Ideation, No Paranoid Ideation - Sensorium Experiencing Hallucinations: No, Sensorium is Clear Type of Hallucinations: Visual: No, Auditory: No, Command: No - Level of Consciousness Level of Consciousness: Alert Orientation: Yes Intact, Yes Orientated to Time, Yes Orientated to Place, Yes Orientated to Person - Impulse Control Impulse Control: Intact - Insight and Judgement Insight and Judgement: Fair - Group Participation Particating in Group Activities: Yes - Medication Management Medication Management Adherence: Yes Assessment - Assessment Merits Inpatient Hospitalization: For Immediate Safety, For Stabilization Inpatient DSM-IV Dx: schizoaffective d/o Plan - Plan Treatment Plan: Name: IRLANDA LIN Birthdate: 1975 [id number] 1. Continue current psychotropic med regimen as ordered. 2. Pending transfer to [facility] for long-term care. 3. Patient to continue participation in groups and milieu activities. Medications: Current Medications Acetaminophen (Tylenol Tab*) 650 mg PO Q4H PRN PRN Reason: PAIN or TEMP > 101 F Last Admin: 12/04/16 17:28 Dose: 650 mg Al Hydrox/Mg Hydrox/Simethicone (Maalox Plus*) 30 ml PO Q4H PRN PRN Reason: INDIGESTION Aripiprazole (Abilify Tab*) 15 mg PO BEDTIME [facility] Last Admin: 12/07/16 23:05 Dose: Not Given Clonazepam (Klonopin Tab(*)) 0.5 mg PO BID PRN PRN Reason: AGITATION/ANXIETY Last Admin: 12/08/16 11:02 Dose: 0.5 mg Device (Nicotine Mouth Piece*) 1 each INH .[facility] Last Admin: 12/06/16 12:44 Dose: 1 each Fluoxetine HCl (Prozac Cap*) 10 mg PO DAILY [facility] Last Admin: 12/08/16 08:08 Dose: 10 mg Multivitamins (Theragran Tab*) 1 tab PO DAILY [facility] Last Admin: 12/08/16 08:08 Dose: 1 tab Nicotine (Nicotine Inhaler*) 10 mg INH Q2H PRN PRN Reason: CRAVING Last Admin: 12/08/16 08:09 Dose: 10 mg Trazodone HCl (Desyrel Tab*) 50 mg PO BEDTIME PRN PRN Reason: INSOMNIA Last Admin: 12/06/16 20:37 Dose: 50 mg - Discharge Plan Discharge Plan: Consider Longer Term Tx Outpatient Program: Private Clinician(s)
[2016-12-08] MEDS: ARIPiprazole TAB* 15 MG PO SCH (21:07)
[2016-12-08] MEDS: traZODone TAB* 50 MG TAB PO PRN (21:08)
[2016-12-09] MEDS: Vitamin THERAPEUTIC TAB PO SCH (07:22)
[2016-12-09] MEDS: FLUoxetine CAP* 10 MG PO SCH (07:22)
[2016-12-09] MEDS: Nicotine Inhaler* 10 MG AMP INH PRN ×2 (07:22→18:36)
[2016-12-09] MEDS: clonazePAM TAB(*) 0.5 MG PO PRN (08:23)
--- NOTE | 2016-12-09 13:56 | PN ---
MHU: Group Therapy Note - Service Type Service Type: [id number] Group Psychotherapy - Cognitive Behavioral Group Therapy ( CBT):Patient was attentive and participatory in CBT programming this morning, and remained in good behavioral control. Patient expressed positive insights regarding relevant treatment interventions and goals.
--- NOTE | 2016-12-09 14:10 | PN ---
Subjective - Subjective Service Type: 96157 Hosp care 15 min low complexity Subjective: Patient visible in the milieu, social with peers, and noted to be participating in groups and milieu activities. Patient reports med compliance and denies s/e's. She reports another night of poor sleep and asks that her Trazodone be increased to 100mg po qhs. Patient reports fair appetite. She denies GUZMAN, CP, Abd pain, and reports issues urinating or issues with constipation since fiber content increased in diet. Patient noted to have a bright affect. She reports her mood and energy have improved daily. Patient noted walking the halls and reports she has done yoga as well today for exercise. Patient denies SI/HI and AH/VH. Objective - Appearance Appearance: Well Developed/Nourished Dysmorphic Features: No Hygiene: Normal Grooming: Fairly Well Kept - Behavior Psychomotor Activities: Normal Exhibits Abnormal Movement: No - Attitude and Relatedness Attitude and Relatedness: Cooperative Eye Contact: Good - Speech Quality: Unpressured Latencies: Normal Quantity: Appropriate - Mood Patient's Decription of Mood: "Okay" - Affect Observed Affect: Fair Affect Consistent with: Euthymia - Thought Process Patient's Thought Process: Coherent Thought Content: No Passive Wish, No Suicidal Planning, No Homicidal Ideation, No Paranoid Ideation - Sensorium Experiencing Hallucinations: No, Sensorium is Clear Type of Hallucinations: Visual: No, Auditory: No, Command: No - Level of Consciousness Level of Consciousness: Alert Orientation: Yes Intact, Yes Orientated to Time, Yes Orientated to Place, Yes Orientated to Person - Impulse Control Impulse Control: Intact - Insight and Judgement Insight and Judgement: Fair - Group Participation Particating in Group Activities: Yes - Medication Management Medication Management Adherence: Yes Assessment - Assessment Merits Inpatient Hospitalization: For Immediate Safety, For Stabilization Inpatient DSM-IV Dx: schizoaffective d/o Plan - Plan Treatment Plan: Name: IRLANDA LIN Birthdate: 1975 [id number] 1. Continue current psychotropic med regimen as ordered. 2. Pending transfer to [facility] for long-term care. 3. Continue currently Rx'd psychotropic regimen with exception of Trazodone increase from 50mg to 100mg po qhs scheduled for insomnia. 4. Patient to continue participation in groups and milieu activities. Medications: Current Medications Acetaminophen (Tylenol Tab*) 650 mg PO Q4H PRN PRN Reason: PAIN or TEMP > 101 F Last Admin: 12/04/16 17:28 Dose: 650 mg Al Hydrox/Mg Hydrox/Simethicone (Maalox Plus*) 30 ml PO Q4H PRN PRN Reason: INDIGESTION Aripiprazole (Abilify Tab*) 15 mg PO BEDTIME [facility] Last Admin: 12/08/16 21:07 Dose: 15 mg Clonazepam (Klonopin Tab(*)) 0.5 mg PO BID PRN PRN Reason: AGITATION/ANXIETY Last Admin: 12/09/16 08:23 Dose: 0.5 mg Device (Nicotine Mouth Piece*) 1 each INH .[facility] Last Admin: 12/06/16 12:44 Dose: 1 each Fluoxetine HCl (Prozac Cap*) 10 mg PO DAILY [facility] Last Admin: 12/09/16 07:22 Dose: 10 mg Multivitamins (Theragran Tab*) 1 tab PO DAILY [facility] Last Admin: 12/09/16 07:22 Dose: 1 tab Nicotine (Nicotine Inhaler*) 10 mg INH Q2H PRN PRN Reason: CRAVING Last Admin: 12/09/16 07:22 Dose: 10 mg Trazodone HCl (Desyrel Tab*) 50 mg PO BEDTIME PRN PRN Reason: INSOMNIA Last Admin: 12/08/16 21:08 Dose: 50 mg - Discharge Plan Discharge Plan: Consider Longer Term Tx
[2016-12-09] MEDS: traZODone TAB* 100 MG PO SCH (21:35)
[2016-12-09] MEDS: ARIPiprazole TAB* 15 MG PO SCH (21:35)
[2016-12-10] MEDS: Vitamin THERAPEUTIC TAB PO SCH (08:31)
[2016-12-10] MEDS: FLUoxetine CAP* 10 MG PO SCH (08:31)
[2016-12-10] MEDS: Nicotine Inhaler* 10 MG AMP INH PRN ×2 (08:32→18:43)
[2016-12-10] MEDS: clonazePAM TAB(*) 0.5 MG PO PRN ×2 (12:37→18:55)
[2016-12-10] MEDS: ARIPiprazole TAB* 15 MG PO SCH (21:53)
[2016-12-10] MEDS: traZODone TAB* 100 MG PO SCH (21:53)
[2016-12-11] MEDS: FLUoxetine CAP* 10 MG PO SCH (09:32)
[2016-12-11] MEDS: Vitamin THERAPEUTIC TAB PO SCH (09:32)
--- NOTE | 2016-12-11 14:19 | PN ---
Subjective - Subjective Service Type: 14822 Hosp care 15 min low complexity Subjective: Diana continues to improve and does not complain of any problems today. Objective - Appearance Appearance: Thin Framed Dysmorphic Features: No Hygiene: Normal Grooming: Fairly Well Kept - Behavior Psychomotor Activities: Normal Exhibits Abnormal Movement: No - Attitude and Relatedness Attitude and Relatedness: Appropriate Eye Contact: Good - Mood Patient's Decription of Mood: "Great" - Affect Observed Affect: Non-labile - Thought Process Patient's Thought Process: Coherent, Goal Directed Thought Content: No Passive Wish, No Suicidal Planning, No Homicidal Ideation, No Paranoid Ideation - Sensorium Experiencing Hallucinations: No, Sensorium is Clear Type of Hallucinations: Visual: No, Auditory: No, Command: No - Level of Consciousness Level of Consciousness: Alert Orientation: Yes Intact, Yes Orientated to Time, Yes Orientated to Place, Yes Orientated to Person - Impulse Control Impulse Control: Intact - Insight and Judgement Insight and Judgement: Fair - Group Participation Particating in Group Activities: Yes - Medication Management Medication Management Adherence: Yes Assessment - Assessment Merits Inpatient Hospitalization: Consolidate Improvements, Pending Safe DC Plan Inpatient DSM-IV Dx: schizoaffective d/o Plan - Plan Treatment Plan: Name: DIANA LIN Birthdate: 1975 [id number] Medications: Current Medications Acetaminophen (Tylenol Tab*) 650 mg PO Q4H PRN PRN Reason: PAIN or TEMP > 101 F Last Admin: 12/04/16 17:28 Dose: 650 mg Al Hydrox/Mg Hydrox/Simethicone (Maalox Plus*) 30 ml PO Q4H PRN PRN Reason: INDIGESTION Aripiprazole (Abilify Tab*) 15 mg PO BEDTIME [facility] Last Admin: 12/10/16 21:53 Dose: 15 mg Clonazepam (Klonopin Tab(*)) 0.5 mg PO BID PRN PRN Reason: AGITATION/ANXIETY Last Admin: 12/10/16 18:55 Dose: 0.5 mg Device (Nicotine Mouth Piece*) 1 each INH .[facility] Last Admin: 12/06/16 12:44 Dose: 1 each Fluoxetine HCl (Prozac Cap*) 10 mg PO DAILY [facility] Last Admin: 12/11/16 09:32 Dose: 10 mg Multivitamins (Theragran Tab*) 1 tab PO DAILY [facility] Last Admin: 12/11/16 09:32 Dose: 1 tab Nicotine (Nicotine Inhaler*) 10 mg INH Q2H PRN PRN Reason: CRAVING Last Admin: 12/10/16 18:43 Dose: 10 mg Trazodone HCl (Desyrel Tab*) 100 mg PO BEDTIME [facility] Last Admin: 12/10/16 21:53 Dose: 100 mg - Discharge Plan Discharge Plan: Outpatient Follow Up Outpatient Program: [facility]
[2016-12-11] MEDS: clonazePAM TAB(*) 0.5 MG PO PRN (16:12)
[2016-12-11] MEDS: ARIPiprazole TAB* 15 MG PO SCH (21:38)
[2016-12-11] MEDS: traZODone TAB* 100 MG PO SCH (21:38)
[2016-12-12] MEDS: clonazePAM TAB(*) 0.5 MG PO PRN (06:47)
[2016-12-12] MEDS: Vitamin THERAPEUTIC TAB PO SCH (09:20)
[2016-12-12] MEDS: FLUoxetine CAP* 10 MG PO SCH (09:20)
--- NOTE | 2016-12-12 12:32 | PN ---
Subjective - Subjective Subjective: Diana reports improved mood and denies suicidal ideation. She states she is having difficulty maintaining sleep at night and c/o excessive daytime sedation. She reports "weird dreams" are interrupting sleep and requests use of seroquel. She expresses insight about medication adherence and changes in functioning when not so. Patient would like to continue to pursue [place] housing and to stay with her mother if possible prior to placement. 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 Objective - Appearance Appearance: Well Developed/Nourished Dysmorphic Features: No Hygiene: Normal Grooming: Fairly Well Kept - Behavior Psychomotor Activities: Normal Exhibits Abnormal Movement: No - Attitude and Relatedness Attitude and Relatedness: Cooperative Eye Contact: Good - Speech Quality: Unpressured Latencies: Normal Quantity: Appropriate - Mood Patient's Decription of Mood: "tired" - Affect Observed Affect: Non-labile Affect Consistent with: Euthymia - Thought Process Patient's Thought Process: Coherent, Goal Directed Thought Content: No Passive Wish, No Suicidal Planning, No Homicidal Ideation, No Paranoid Ideation - Sensorium Experiencing Hallucinations: No, Sensorium is Clear Type of Hallucinations: Visual: No, Auditory: No, Command: No - Level of Consciousness Level of Consciousness: Alert Orientation: Yes Intact, Yes Orientated to Time, Yes Orientated to Place, Yes Orientated to Person - Impulse Control Impulse Control: Intact - Insight and Judgement Insight and Judgement: Fair - Group Participation Particating in Group Activities: Yes - Medication Management Medication Management Adherence: Yes Assessment - Assessment Merits Inpatient Hospitalization: For Immediate Safety, For Discharge Planning, Pending Safe DC Plan Inpatient DSM-IV Dx: schizoaffective d/o Clinical Impression: Diana is a 41yo female with history of psychosis and substance use. Her toxicology was negative in the ED. She has been intermittently present at [facility] and has had multiple brief psychiatric hospitalizations in the [facility] region. She is responding well to oral abilify and agrees to trial of injectable. 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 Plan - Plan Treatment Plan: Name: DIANA LIN Birthdate: 1975 [id number] Patient no longer meets requirement for nursing home hospitalization. Will continue oral aripiprazole for 14 days after first maintena injection. Will discontinue trazodone due to nightmares and daytime sedation and trial low dose seroquel upon patient request. Discharge planning will pursue [facility] and [place]. Continued Medication Management: Different Medication Medications: Current Medications Acetaminophen (Tylenol Tab*) 650 mg PO Q4H PRN PRN Reason: PAIN or TEMP > 101 F Last Admin: 12/04/16 17:28 Dose: 650 mg Al Hydrox/Mg Hydrox/Simethicone (Maalox Plus*) 30 ml PO Q4H PRN PRN Reason: INDIGESTION Aripiprazole (Abilify Tab*) 15 mg PO BEDTIME [facility] Last Admin: 12/11/16 21:38 Dose: 15 mg Clonazepam (Klonopin Tab(*)) 0.5 mg PO BID PRN PRN Reason: AGITATION/ANXIETY Last Admin: 12/12/16 06:47 Dose: 0.5 mg Device (Nicotine Mouth Piece*) 1 each INH .[facility]TRID[facility] Last Admin: 12/06/16 12:44 Dose: 1 each Fluoxetine HCl (Prozac Cap*) 10 mg PO DAILY [facility] Last Admin: 12/12/16 09:20 Dose: 10 mg Multivitamins (Theragran Tab*) 1 tab PO DAILY [facility] Last Admin: 12/12/16 09:20 Dose: 1 tab Nicotine (Nicotine Inhaler*) 10 mg INH Q2H PRN PRN Reason: CRAVING Last Admin: 12/10/16 18:43 Dose: 10 mg quetiapine 25mg PO qhs Aripiprazole maintenna 400mg IM q28day - Discharge Plan Discharge Plan: Outpatient Follow Up Outpatient Program: [facility]
[2016-12-12] MEDS: Nicotine Inhaler* 10 MG AMP INH PRN ×2 (15:24→20:20)
[2016-12-12] MEDS: ARIPiprazole TAB* 15 MG PO SCH (20:19)
[2016-12-12] MEDS: QUEtiapine TAB* 25 MG PO SCH (20:19)
[2016-12-13] MEDS: Nicotine Inhaler* 10 MG AMP INH PRN ×3 (07:23→19:06)
[2016-12-13] MEDS: Vitamin THERAPEUTIC TAB PO SCH (09:24)
[2016-12-13] MEDS: FLUoxetine CAP* 10 MG PO SCH (09:24)
[2016-12-13] MEDS: clonazePAM TAB(*) 0.5 MG PO PRN (11:42)
--- NOTE | 2016-12-13 13:45 | PN ---
Subjective - Subjective Subjective: Patient is pleasant and euthymic. She reports sleeping better last night and did not have "weird dreams." She states that her Right arm is mildly painful but denies other side effects from the maintenna injection. Patient continues to express interest in pursuing [place]. She denies SI or SIB urges. Objective - Appearance Appearance: Well Developed/Nourished Dysmorphic Features: No Hygiene: Normal Grooming: Fairly Well Kept - Behavior Psychomotor Activities: Normal Exhibits Abnormal Movement: No - Attitude and Relatedness Attitude and Relatedness: Cooperative Eye Contact: Good - Speech Quality: Unpressured Latencies: Normal Quantity: Appropriate - Mood Patient's Decription of Mood: "Good" - Affect Observed Affect: Non-labile Affect Consistent with: Euthymia - Thought Process Patient's Thought Process: Coherent, Goal Directed Thought Content: No Passive Wish, No Suicidal Planning, No Homicidal Ideation, No Paranoid Ideation - Sensorium Experiencing Hallucinations: No, Sensorium is Clear Type of Hallucinations: Visual: No, Auditory: No, Command: No - Level of Consciousness Orientation: Yes Intact, Yes Orientated to Time, Yes Orientated to Place, Yes Orientated to Person - Impulse Control Impulse Control: Intact - Insight and Judgement Insight and Judgement: Good - Group Participation Particating in Group Activities: Yes - Medication Management Medication Management Adherence: Yes Assessment - Assessment Merits Inpatient Hospitalization: For Immediate Safety, For Stabilization, For Discharge Planning, Pending Safe DC Plan Inpatient DSM-IV Dx: schizoaffective d/o Clinical Impression: Diana is a 41yo female with history of psychosis and substance use. Her toxicology was negative in the ED. She has been intermittently present at [facility] and has had multiple brief psychiatric hospitalizations in the [facility]. She is responding well to oral abilify and agrees to trial of injectable. She no longer meets requirement for need for hand i blocker hospitalization and agrees to follow up with outpatient services. Plan - Plan Treatment Plan: Name: DIANA LIN Birthdate: 1975 [id number] Patient no longer meets requirement for hand i blocker hospitalization. She had her initial abilify maintenna injection on 12/12/16 and will continue oral aripiprazole for 13 days. Discharge planning will pursue [facility] and [facility] services. Continued Medication Management: Different Medication Medications: Current Medications Acetaminophen (Tylenol Tab*) 650 mg PO Q4H PRN PRN Reason: PAIN or TEMP > 101 F Last Admin: 12/04/16 17:28 Dose: 650 mg Al Hydrox/Mg Hydrox/Simethicone (Maalox Plus*) 30 ml PO Q4H PRN PRN Reason: INDIGESTION Aripiprazole (Abilify Maintena (Nf)) 400 mg IM Q28D [facility] Last Admin: 12/12/16 21:16 Dose: 400 mg Aripiprazole (Abilify Tab*) 15 mg PO BEDTIME [facility] Stop: 12/25/16 21:05 Last Admin: 12/12/16 20:19 Dose: 15 mg Clonazepam (Klonopin Tab(*)) 0.5 mg PO BID PRN PRN Reason: AGITATION/ANXIETY Last Admin: 12/13/16 11:42 Dose: 0.5 mg Device (Nicotine Mouth Piece*) 1 each INH .[facility] Last Admin: 12/06/16 12:44 Dose: 1 each Fluoxetine HCl (Prozac Cap*) 10 mg PO DAILY [facility] Last Admin: 12/13/16 09:24 Dose: 10 mg Multivitamins (Theragran Tab*) 1 tab PO DAILY [facility] Last Admin: 12/13/16 09:24 Dose: 1 tab Nicotine (Nicotine Inhaler*) 10 mg INH Q2H PRN PRN Reason: CRAVING Last Admin: 12/13/16 11:43 Dose: 10 mg Quetiapine Fumarate (Seroquel Tab*) 25 mg PO BEDTIME [facility] Last Admin: 12/12/16 20:19 Dose: 25 mg - Discharge Plan Discharge Plan: Outpatient Follow Up Outpatient Program: [facility]
[2016-12-13] MEDS: QUEtiapine TAB* 25 MG PO SCH (21:45)
[2016-12-13] MEDS: ARIPiprazole TAB* 15 MG PO SCH (21:45)
[2016-12-14] MEDS: Nicotine Inhaler* 10 MG AMP INH PRN ×2 (07:41→18:21)
[2016-12-14] MEDS: FLUoxetine CAP* 10 MG PO SCH (07:41)
[2016-12-14] MEDS: Vitamin THERAPEUTIC TAB PO SCH (07:41)
--- NOTE | 2016-12-14 11:55 | PN ---
MHU: Group Therapy Note - Service Type Service Type: [id number] Group Psychotherapy - Cognitive Behavioral Group Therapy ( CBT):Patient was attentive and participatory in CBT programming this morning, and remained in good behavioral control. Patient expressed positive insights regarding relevant treatment interventions and goals.
[2016-12-14] MEDS: clonazePAM TAB(*) 0.5 MG PO PRN ×2 (13:15→22:13)
--- NOTE | 2016-12-14 15:12 | PN ---
Subjective - Subjective Service Type: [id number] Hosp care 15 min low complexity Subjective: Patient reports continued anxiety and restlessness r/t planning for housing. She denies AH/VH and clarifies that strange dreams are bothering her upon waking in the mornings. She denies depression or SI. She is participating in programming and interactive with staff and peers. Objective - Appearance Appearance: Well Developed/Nourished Dysmorphic Features: No Hygiene: Normal Grooming: Well Kept - Behavior Psychomotor Activities: Normal Exhibits Abnormal Movement: No - Attitude and Relatedness Attitude and Relatedness: Cooperative Eye Contact: Good - Speech Quality: Unpressured Latencies: Normal Quantity: Appropriate - Mood Patient's Decription of Mood: "I was grouchy earlier but I'm ok" - Affect Observed Affect: Non-labile Affect Consistent with: Euthymia - Thought Process Patient's Thought Process: Coherent, Goal Directed Thought Content: No Passive Wish, No Suicidal Planning, No Homicidal Ideation, No Paranoid Ideation - Sensorium Experiencing Hallucinations: No, Sensorium is Clear Type of Hallucinations: Visual: No, Auditory: No, Command: No - Level of Consciousness Level of Consciousness: Alert Orientation: Yes Intact, Yes Orientated to Time, Yes Orientated to Place, Yes Orientated to Person - Impulse Control Impulse Control: Intact - Insight and Judgement Insight and Judgement: Good - Group Participation Particating in Group Activities: Yes - Medication Management Medication Management Adherence: Yes Assessment - Assessment Merits Inpatient Hospitalization: Consolidate Improvements, For Discharge Planning, Pending Safe DC Plan Inpatient DSM-IV Dx: schizoaffective d/o Clinical Impression: Diana is a 41yo female with history of psychosis and substance use. Her toxicology was negative in the ED. She has been intermittently present at [facility] and has had multiple brief psychiatric hospitalizations in the [facility]. She is responding well to oral abilify and agrees to trial of injectable. She no longer meets requirement for need for [facility] hospitalization and agrees to follow up with outpatient services. 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 She had her initial abilify maintenna injection on 12/12/16 and will continue oral aripiprazole for 12 days. Discharge planning will pursue [facility] and [place] services. Continued Medication Management: Different Medication Medications: Current Medications Acetaminophen (Tylenol Tab*) 650 mg PO Q4H PRN PRN Reason: PAIN or TEMP > 101 F Last Admin: 12/04/16 17:28 Dose: 650 mg Al Hydrox/Mg Hydrox/Simethicone (Maalox Plus*) 30 ml PO Q4H PRN PRN Reason: INDIGESTION Aripiprazole (Abilify Maintena (Nf)) 400 mg IM Q28D [facility] Last Admin: 12/12/16 21:16 Dose: 400 mg Aripiprazole (Abilify Tab*) 15 mg PO BEDTIME [facility] Stop: 12/25/16 21:05 Last Admin: 12/13/16 21:45 Dose: 15 mg Clonazepam (Klonopin Tab(*)) 0.5 mg PO BID PRN PRN Reason: AGITATION/ANXIETY Last Admin: 12/14/16 13:15 Dose: 0.5 mg Device (Nicotine Mouth Piece*) 1 each INH .[facility] Last Admin: 12/06/16 12:44 Dose: 1 each Fluoxetine HCl (Prozac Cap*) 10 mg PO DAILY [facility] Last Admin: 12/14/16 07:41 Dose: 10 mg Multivitamins (Theragran Tab*) 1 tab PO DAILY [facility] Last Admin: 12/14/16 07:41 Dose: 1 tab Nicotine (Nicotine Inhaler*) 10 mg INH Q2H PRN PRN Reason: CRAVING Last Admin: 12/14/16 07:41 Dose: 10 mg Quetiapine Fumarate (Seroquel Tab*) 25 mg PO BEDTIME [facility] Last Admin: 12/13/16 21:45 Dose: 25 mg - Discharge Plan Discharge Plan: Outpatient Follow [facility]
[2016-12-14] MEDS: ARIPiprazole TAB* 15 MG PO SCH (21:35)
[2016-12-14] MEDS: QUEtiapine TAB* 25 MG PO SCH (21:35)
[2016-12-15] MEDS: Nicotine Inhaler* 10 MG AMP INH PRN ×2 (08:24→12:27)
[2016-12-15] MEDS: FLUoxetine CAP* 10 MG PO SCH (08:24)
[2016-12-15] MEDS: Vitamin THERAPEUTIC TAB PO SCH (08:24)
[2016-12-15] MEDS: Mouth Piece, Nicotine* 1 EACH CARTRIDGE INH SCH (12:26)
[2016-12-15] MEDS: clonazePAM TAB(*) 0.5 MG PO PRN ×2 (12:57→19:20)
--- NOTE | 2016-12-15 13:17 | PN ---
MHU: Group Therapy Note - Service Type Service Type: [id number] Group Psychotherapy - Cognitive Behavioral Group Therapy ( CBT):Patient was attentive and participatory in CBT programming this morning, and remained in good behavioral control. Patient expressed positive insights regarding relevant treatment interventions and goals.
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
[2016-12-15] MEDS: ARIPiprazole TAB* 15 MG PO SCH (20:55)
[2016-12-15] MEDS: Prazosin CAP* 1 MG PO SCH (20:55)
[2016-12-16] MEDS: Nicotine Inhaler* 10 MG AMP INH PRN ×3 (07:27→17:21)
[2016-12-16] MEDS: FLUoxetine CAP* 10 MG PO SCH (07:27)
[2016-12-16] MEDS: Vitamin THERAPEUTIC TAB PO SCH (07:27)
[2016-12-16] MEDS: clonazePAM TAB(*) 0.5 MG PO PRN ×2 (10:14→17:40)
--- NOTE | 2016-12-16 11:37 | PN ---
MHU: Group Therapy Note - Service Type Service Type: 05029 Group Psychotherapy - Cognitive Behavioral Group Therapy ( CBT):Patient was attentive and participatory in CBT programming this morning, and remained in good behavioral control. Patient expressed positive insights regarding relevant treatment interventions and goals.
--- NOTE | 2016-12-16 15:50 | PN ---
Subjective - Subjective Subjective: Patient reports improved sleep last night and denies nightmares. She states she is "a little anxious." Patient reports looking forward to gaining stability in her life. She has been interactive with staff/peers. She is participating fully on the unit. Patient denies SI or SIB. Objective - Appearance Appearance: Well Developed/Nourished Dysmorphic Features: No Hygiene: Normal Grooming: Well Kept - Behavior Psychomotor Activities: Normal Exhibits Abnormal Movement: No - Attitude and Relatedness Attitude and Relatedness: Cooperative Eye Contact: Good - Speech Quality: Unpressured Latencies: Normal Quantity: Appropriate - Mood Patient's Decription of Mood: "Anxious" - Affect Observed Affect: Good Affect Consistent with: Euthymia - Thought Process Patient's Thought Process: Coherent, Goal Directed Thought Content: No Passive Wish, No Suicidal Planning, No Homicidal Ideation, No Paranoid Ideation - Sensorium Experiencing Hallucinations: No, Sensorium is Clear Type of Hallucinations: Visual: No, Auditory: No, Command: No - Level of Consciousness Level of Consciousness: Alert Orientation: Yes Intact, Yes Orientated to Time, Yes Orientated to Place, Yes Orientated to Person - Impulse Control Impulse Control: Intact - Insight and Judgement Insight and Judgement: Good - Group Participation Particating in Group Activities: Yes - Medication Management Medication Management Adherence: Yes Assessment - Assessment Merits Inpatient Hospitalization: Consolidate Improvements, For Discharge Planning Inpatient DSM-IV Dx: schizoaffective d/o Clinical Impression: Diana is a 41yo female with history of psychosis and substance use. Her toxicology was negative in the ED. She has been intermittently present at [facility] and has had multiple brief psychiatric hospitalizations in the [facility]. She is responding well to oral abilify and agrees to trial of injectable. She no longer meets requirement for need for superintendent terminal hospitalization and agrees to follow up with outpatient services. Plan - Plan Treatment Plan: Name: DIANA LIN Birthdate: 1975 [id number] continue prazosin 1mg qhs for PTSD sx and change quetiapine dose to prn qhs insomnia. Patient no longer meets requirement for fdc hospitalization. She had her initial abilify maintenna injection on 12/12/16 and will continue oral aripiprazole for 14 days afterwards. Discharge planning will pursue [facility] and [place] services. Continued Medication Management: Different Medication Medications: Current Medications Acetaminophen (Tylenol Tab*) 650 mg PO Q4H PRN PRN Reason: PAIN or TEMP > 101 F Last Admin: 12/04/16 17:28 Dose: 650 mg Al Hydrox/Mg Hydrox/Simethicone (Maalox Plus*) 30 ml PO Q4H PRN PRN Reason: INDIGESTION Aripiprazole (Abilify Maintena (Nf)) 400 mg IM Q28D [facility] Last Admin: 12/12/16 21:16 Dose: 400 mg Aripiprazole (Abilify Tab*) 15 mg PO BEDTIME C[facility] Stop: 12/25/16 21:05 Last Admin: 12/15/16 20:55 Dose: 15 mg Clonazepam (Klonopin Tab(*)) 0.5 mg PO BID PRN PRN Reason: AGITATION/ANXIETY Last Admin: 12/16/16 10:14 Dose: 0.5 mg Device (Nicotine Mouth Piece*) 1 each INH .CARTRIDGE [facility] Last Admin: 12/15/16 12:26 Dose: 1 each Fluoxetine HCl (Prozac Cap*) 10 mg PO DAILY CELSO Last Admin: 12/16/16 07:27 Dose: 10 mg Multivitamins (Theragran Tab*) 1 tab PO DAILY CELSO Last Admin: 12/16/16 07:27 Dose: 1 tab Nicotine (Nicotine Inhaler*) 10 mg INH Q2H PRN PRN Reason: CRAVING Last Admin: 12/16/16 12:55 Dose: 10 mg Prazosin HCl (Minipress Cap*) 1 mg PO BEDTIME CELSO Last Admin: 12/15/16 20:55 Dose: 1 mg Quetiapine Fumarate (Seroquel Tab*) 25 mg PO BEDTIME PRN PRN Reason: INSOMNIA - Discharge Plan Discharge Plan: Outpatient Follow Up Outpatient Program: [facility]
[2016-12-16] MEDS: Prazosin CAP* 1 MG PO SCH (22:04)
[2016-12-16] MEDS: ARIPiprazole TAB* 15 MG PO SCH (22:04)
[2016-12-17] MEDS: FLUoxetine CAP* 10 MG PO SCH (08:17)
[2016-12-17] MEDS: Nicotine Inhaler* 10 MG AMP INH PRN ×4 (08:17→20:50)
[2016-12-17] MEDS: Vitamin THERAPEUTIC TAB PO SCH (08:17)
[2016-12-17] MEDS: clonazePAM TAB(*) 0.5 MG PO PRN ×2 (12:31→18:42)
[2016-12-17] MEDS ORDERED: Docusate CAP* 100 MG ONE (20:50)
[2016-12-17] MEDS: Prazosin CAP* 1 MG PO SCH (20:51)
[2016-12-17] MEDS: ARIPiprazole TAB* 15 MG PO SCH (20:51)
[2016-12-17] MEDS: QUEtiapine TAB* 25 MG PO PRN (20:53)
[2016-12-18] MEDS: Docusate CAP* 100 MG PO PRN ×2 (07:45→20:50)
[2016-12-18] MEDS: Acetaminophen TAB* 325 MG PO PRN (07:45)
[2016-12-18] MEDS: Nicotine Inhaler* 10 MG AMP INH PRN (07:46)
[2016-12-18] MEDS: Vitamin THERAPEUTIC TAB PO SCH (10:04)
[2016-12-18] MEDS: FLUoxetine CAP* 10 MG PO SCH (10:04)
[2016-12-18] MEDS: clonazePAM TAB(*) 0.5 MG PO PRN ×2 (10:40→17:47)
[2016-12-18] MEDS: Al Hydrox/Mg Hydrox/Simet LIQ* 30 ML UDC PO PRN (18:02)
[2016-12-18] MEDS: Prazosin CAP* 1 MG PO SCH (20:50)
[2016-12-18] MEDS: ARIPiprazole TAB* 15 MG PO SCH (20:50)
[2016-12-18] MEDS: QUEtiapine TAB* 25 MG PO PRN (20:51)
[2016-12-19] MEDS: FLUoxetine CAP* 10 MG PO SCH (09:37)
[2016-12-19] MEDS: Nicotine Inhaler* 10 MG AMP INH PRN (09:37)
[2016-12-19] MEDS: Vitamin THERAPEUTIC TAB PO SCH (09:37)
[2016-12-19] MEDS: Docusate CAP* 100 MG PO PRN ×2 (09:37→21:02)
[2016-12-19] MEDS: Al Hydrox/Mg Hydrox/Simet LIQ* 30 ML UDC PO PRN (09:38)
[2016-12-19] MEDS: clonazePAM TAB(*) 0.5 MG PO PRN ×2 (11:05→18:08)
--- NOTE | 2016-12-19 11:56 | PN ---
MHU: Group Therapy Note - Service Type Service Type: [id number] Group Psychotherapy - Cognitive Behavioral Group Therapy ( CBT):Patient was attentive and participatory in CBT programming this morning, and remained in good behavioral control. Patient expressed positive insights regarding relevant treatment interventions and goals.
--- NOTE | 2016-12-19 16:07 | PN ---
Subjective - Subjective Service Type: 07839 Hosp care 15 min low complexity Subjective: Diana states she feels "terrible." She reports hearing a rumor that [facility] housing is not going to accept her. She reports increased anxiety. Tail Dogger assured her that TAWNYA is attending SPOE meeting tomorrow and that no information has been given about her housing referral. Patient expresses concern about weight gain and medication side effects. Requests to change from quetiapine to trazodone. Objective - Appearance Appearance: Well Developed/Nourished Dysmorphic Features: Yes Hygiene: Normal Grooming: Well Kept - Behavior Psychomotor Activities: Normal Exhibits Abnormal Movement: No - Attitude and Relatedness Attitude and Relatedness: Cooperative Eye Contact: Good - Speech Quality: Unpressured Latencies: Normal Quantity: Appropriate - Mood Patient's Decription of Mood: "Terrible" - Affect Observed Affect: Labile Affect Consistent with: Dysphoria - Thought Process Patient's Thought Process: Coherent, Goal Directed Thought Content: No Passive Wish, No Suicidal Planning, No Homicidal Ideation, No Paranoid Ideation - Sensorium Experiencing Hallucinations: No, Sensorium is Clear Type of Hallucinations: Visual: No, Auditory: No, Command: No - Level of Consciousness Level of Consciousness: Alert Orientation: Yes Intact, Yes Orientated to Time, Yes Orientated to Place, Yes Orientated to Person - Impulse Control Impulse Control: Tenuous - Insight and Judgement Insight and Judgement: Fair - Group Participation Particating in Group Activities: Yes - Medication Management Medication Management Adherence: Yes Assessment - Assessment Merits Inpatient Hospitalization: For Immediate Safety, For Stabilization, Consolidate Improvements, For Discharge Planning, Pending Safe DC Plan Inpatient DSM-IV Dx: schizoaffective d/o Clinical Impression: Diana is a 41yo female with history of psychosis and substance use. Her toxicology was negative in the ED. She has been intermittently present at [facility] and has had multiple brief psychiatric hospitalizations in the [facility] region. She is responding well to oral abilify and agreed to trial of injectable. She no longer meets requirement for need for terminal superintendent hospitalization and agrees to follow up with outpatient services. Plan - Plan Treatment Plan: Name: DIANA LIN Birthdate: 1975 [id number] continue prazosin 1mg qhs for PTSD sx and change quetiapine to trazodone for insomnia. Patient no longer meets requirement for terminal superintendent hospitalization. She had her initial abilify maintenna injection on 12/12/16 and will continue oral aripiprazole for 14 days afterwards. Discharge planning will pursue [facility] and [place] services. Continued Medication Management: Different Medication Medications: Current Medications Acetaminophen (Tylenol Tab*) 650 mg PO Q4H PRN PRN Reason: PAIN or TEMP > 101 F Last Admin: 12/18/16 07:45 Dose: 650 mg Al Hydrox/Mg Hydrox/Simethicone (Maalox Plus*) 30 ml PO Q4H PRN PRN Reason: INDIGESTION Last Admin: 12/19/16 09:38 Dose: 30 ml Aripiprazole (Abilify Maintena (Nf)) 400 mg IM Q28D [facility] Last Admin: 12/12/16 21:16 Dose: 400 mg Aripiprazole (Abilify Tab*) 15 mg PO BEDTIME CELSO Stop: 12/25/16 21:05 Last Admin: 12/18/16 20:50 Dose: 15 mg Clonazepam (Klonopin Tab(*)) 0.5 mg PO BID PRN PRN Reason: AGITATION/ANXIETY Last Admin: 12/19/16 11:05 Dose: 0.5 mg Device (Nicotine Mouth Piece*) 1 each INH .CARTRIDGE [facility] Last Admin: 12/15/16 12:26 Dose: 1 each Docusate Sodium (Colace Cap*) 100 mg PO BID PRN PRN Reason: CONSTIPATION Last Admin: 12/19/16 09:37 Dose: 100 mg Fluoxetine HCl (Prozac Cap*) 20 mg PO DAILY CELSO Gabapentin (Neurontin Cap(*)) 300 mg PO TID PRN PRN Reason: ANXIETY Multivitamins (Theragran Tab*) 1 tab PO DAILY CELSO Last Admin: 12/19/16 09:37 Dose: 1 tab Nicotine (Nicotine Inhaler*) 10 mg INH Q2H PRN PRN Reason: CRAVING Last Admin: 12/19/16 09:37 Dose: 10 mg Prazosin HCl (Minipress Cap*) 1 mg PO BEDTIME CELSO Last Admin: 12/18/16 20:50 Dose: 1 mg Trazodone HCl (Desyrel Tab*) 50 mg PO BEDTIME CELSO - Discharge Plan Discharge Plan: Outpatient Follow Up Outpatient Program: [facility]
[2016-12-19] MEDS: traZODone TAB* 50 MG TAB PO SCH (21:02)
[2016-12-19] MEDS: ARIPiprazole TAB* 15 MG PO SCH (21:02)
[2016-12-19] MEDS: Prazosin CAP* 1 MG PO SCH (21:02)
[2016-12-20] MEDS: FLUoxetine CAP* 20 MG PO SCH (09:11)
[2016-12-20] MEDS: Vitamin THERAPEUTIC TAB PO SCH (09:11)
[2016-12-20] MEDS: Al Hydrox/Mg Hydrox/Simet LIQ* 30 ML UDC PO PRN (09:49)
[2016-12-20] MEDS: Nicotine Inhaler* 10 MG AMP INH PRN ×2 (12:40→19:18)
[2016-12-20] MEDS: Docusate CAP* 100 MG PO PRN ×2 (12:58→20:13)
[2016-12-20] MEDS: clonazePAM TAB(*) 0.5 MG PO PRN (12:59)
--- NOTE | 2016-12-20 15:55 | PN ---
Subjective - Subjective Service Type: 40093 Hosp care 15 min low complexity Subjective: Patient reports continued anxiety. She endorses the "rumor" she heard yesterday about [facility] not accepting her was an internal dialogue. She endorses AH when asked directly. Otherwise, she is interactive and pleasant with staff and select peers. She is participating in groups and utilizing prn medications. Objective - Appearance Appearance: Well Developed/Nourished Dysmorphic Features: No Hygiene: Normal Grooming: Well Kept - Behavior Psychomotor Activities: Normal Exhibits Abnormal Movement: No - Attitude and Relatedness Attitude and Relatedness: Cooperative Eye Contact: Good - Speech Quality: Unpressured Latencies: Normal Quantity: Copious - Mood Patient's Decription of Mood: "Anxious" - Affect Observed Affect: Tense Affect Consistent with: Euthymia - Thought Process Patient's Thought Process: Coherent, Goal Directed, Circumstantial Thought Content: No Passive Wish, No Suicidal Planning, No Homicidal Ideation, No Paranoid Ideation - Sensorium Experiencing Hallucinations: Yes Type of Hallucinations: Visual: No, Auditory: Yes, Command: No - Level of Consciousness Level of Consciousness: Alert Orientation: Yes Intact, Yes Orientated to Time, Yes Orientated to Place, Yes Orientated to Person - Impulse Control Impulse Control: Tenuous - Insight and Judgement Insight and Judgement: Good - Group Participation Particating in Group Activities: Yes - Medication Management Medication Management Adherence: Yes Assessment - Assessment Merits Inpatient Hospitalization: For Immediate Safety, For Stabilization, For Discharge Planning Inpatient DSM-IV Dx: schizoaffective d/o Clinical Impression: Diana is a 41yo female with history of psychosis and substance use. Her toxicology was negative in the ED. She has been intermittently present at [facility] and has had multiple brief psychiatric hospitalizations in the [facility]. She is responding well to oral abilify and agreed to trial of injectable. 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 Will increase anxiolytic to target stress-related AH. Plan - Plan Treatment Plan: Name: DIANA LIN Birthdate: 1975 [id number] continue prazosin 1mg qhs for PTSD sx and change quetiapine to trazodone for insomnia. 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 She had her initial abilify maintenna injection on 12/12/16 and will continue oral aripiprazole for 14 days afterwards. Discharge planning will pursue [facility] and [place] services. Continued Medication Management: Consider Medication Medications: Current Medications Acetaminophen (Tylenol Tab*) 650 mg PO Q4H PRN PRN Reason: PAIN or TEMP > 101 F Last Admin: 12/18/16 07:45 Dose: 650 mg Al Hydrox/Mg Hydrox/Simethicone (Maalox Plus*) 30 ml PO Q4H PRN PRN Reason: INDIGESTION Last Admin: 12/20/16 09:49 Dose: 30 ml Aripiprazole (Abilify Maintena (Nf)) 400 mg IM Q28D [facility] Last Admin: 12/12/16 21:16 Dose: 400 mg Aripiprazole (Abilify Tab*) 15 mg PO BEDTIME [facility]ELSO Stop: 12/25/16 21:05 Last Admin: 12/19/16 21:02 Dose: 15 mg Clonazepam (Klonopin Tab(*)) 1 mg PO BID PRN PRN Reason: AGITATION/ANXIETY Device (Nicotine Mouth Piece*) 1 each INH .CARTRIDGE [facility] Last Admin: 12/15/16 12:26 Dose: 1 each Docusate Sodium (Colace Cap*) 100 mg PO BID PRN PRN Reason: CONSTIPATION Last Admin: 12/20/16 12:58 Dose: 100 mg Fluoxetine HCl (Prozac Cap*) 20 mg PO DAILY CELSO Last Admin: 12/20/16 09:11 Dose: 20 mg Gabapentin (Neurontin Cap(*)) 300 mg PO TID PRN PRN Reason: ANXIETY Multivitamins (Theragran Tab*) 1 tab PO DAILY CELSO Last Admin: 12/20/16 09:11 Dose: 1 tab Nicotine (Nicotine Inhaler*) 10 mg INH Q2H PRN PRN Reason: CRAVING Last Admin: 12/20/16 12:40 Dose: 10 mg Prazosin HCl (Minipress Cap*) 1 mg PO BEDTIME CELSO Last Admin: 12/19/16 21:02 Dose: 1 mg Trazodone HCl (Desyrel Tab*) 50 mg PO BEDTIME CELSO Last Admin: 12/19/16 21:02 Dose: 50 mg - Discharge Plan Discharge Plan: Outpatient Follow Up Outpatient Program: [facility]
[2016-12-20] MEDS: ARIPiprazole TAB* 15 MG PO SCH (20:12)
[2016-12-20] MEDS: traZODone TAB* 50 MG TAB PO SCH (20:13)
[2016-12-20] MEDS: Prazosin CAP* 1 MG PO SCH (20:13)
[2016-12-20] MEDS: clonazePAM TAB(*) 1 MG PO PRN (20:14)
[2016-12-21] MEDS: Vitamin THERAPEUTIC TAB PO SCH (08:12)
[2016-12-21] MEDS: FLUoxetine CAP* 20 MG PO SCH (08:12)
[2016-12-21] MEDS: Acetaminophen TAB* 325 MG PO PRN (08:14)
[2016-12-21] MEDS: Docusate CAP* 100 MG PO PRN (08:14)
[2016-12-21] MEDS: clonazePAM TAB(*) 1 MG PO PRN ×2 (08:14→19:08)
[2016-12-21] MEDS: Ibuprofen TAB* 600 MG PO PRN (14:11)
--- NOTE | 2016-12-21 16:14 | PN ---
Subjective - Subjective Service Type: 98288 Hosp care 15 min low complexity Subjective: Patient reports continued anxiety about placement upon discharge. She states her mood is "all right." She reports adequate sleep and appetite. She c/o L-sided rib pain upon waking and describes musculoskeletal pain. She took acetaminophen with little effect. Stone Sawyer ordered ibuprofen and encouraged alternating the two pain medications. Will assess for effect. She denies constipation or injury. Objective - Appearance Appearance: Well Developed/Nourished Dysmorphic Features: No Hygiene: Normal Grooming: Well Kept - Behavior Psychomotor Activities: Normal Exhibits Abnormal Movement: No - Attitude and Relatedness Attitude and Relatedness: Cooperative Eye Contact: Good - Speech Quality: Unpressured Latencies: Normal Quantity: Appropriate - Mood Patient's Decription of Mood: "alright" - Affect Observed Affect: Good Affect Consistent with: Euthymia - Thought Process Patient's Thought Process: Coherent, Goal Directed Thought Content: No Passive Wish, No Suicidal Planning, No Homicidal Ideation, No Paranoid Ideation - Sensorium Experiencing Hallucinations: Yes Type of Hallucinations: Visual: No, Auditory: Yes - vague internal stimuli, Command: No - Level of Consciousness Level of Consciousness: Alert Orientation: Yes Intact, Yes Orientated to Time, Yes Orientated to Place, Yes Orientated to Person - Impulse Control Impulse Control: Intact - Insight and Judgement Insight and Judgement: Good - Group Participation Particating in Group Activities: Yes - Medication Management Medication Management Adherence: Yes Assessment - Assessment Merits Inpatient Hospitalization: For Immediate Safety, For Stabilization, For Ongoing Evaluation, Consolidate Improvements, For Discharge Planning, Pending Safe DC Plan Inpatient DSM-IV Dx: schizoaffective d/o Clinical Impression: Diana is a 41yo female with history of psychosis and substance use. Her toxicology was negative in the ED. She has been intermittently present at [facility] and has had multiple brief psychiatric hospitalizations in the [facility]. She is responding well to oral abilify and agreed to trial of injectable. She no longer meets requirement for need for intermediate hospitalization and agrees to follow up with outpatient services. She is vulnerable in the community if discharged without a safe plan. Plan - Plan Treatment Plan: Name: DIANA LIN Birthdate: 1975 [id number] continue current medications. Patient no longer meets requirement for intermediate hospitalization. She had her initial abilify maintenna injection on 12/12/16 and will continue oral aripiprazole for 14 days afterwards. Discharge planning will pursue [facility] and [place] services. will consider emergency housing if other options are not viable. Continued Medication Management: Different Medication Medications: Current Medications Acetaminophen (Tylenol Tab*) 650 mg PO Q4H PRN PRN Reason: PAIN or TEMP > 101 F Last Admin: 12/21/16 08:14 Dose: 650 mg Al Hydrox/Mg Hydrox/Simethicone (Maalox Plus*) 30 ml PO Q4H PRN PRN Reason: INDIGESTION Last Admin: 12/20/16 09:49 Dose: 30 ml Aripiprazole (Abilify Maintena (Nf)) 400 mg IM Q28D CELSO Last Admin: 12/12/16 21:16 Dose: 400 mg Aripiprazole (Abilify Tab*) 15 mg PO BEDTIME CELSO Stop: 12/25/16 21:05 Last Admin: 12/20/16 20:12 Dose: 15 mg Clonazepam (Klonopin Tab(*)) 1 mg PO BID PRN PRN Reason: AGITATION/ANXIETY Last Admin: 12/21/16 08:14 Dose: 1 mg Device (Nicotine Mouth Piece*) 1 each INH .CARTRIDGE [facility] Last Admin: 12/15/16 12:26 Dose: 1 each Docusate Sodium (Colace Cap*) 100 mg PO BID PRN PRN Reason: CONSTIPATION Last Admin: 12/21/16 08:14 Dose: 100 mg Fluoxetine HCl (Prozac Cap*) 20 mg PO DAILY CELSO Last Admin: 12/21/16 08:12 Dose: 20 mg Gabapentin (Neurontin Cap(*)) 300 mg PO TID PRN PRN Reason: ANXIETY Ibuprofen (Motrin Tab*) 600 mg PO Q6H PRN PRN Reason: PAIN Last Admin: 12/21/16 14:11 Dose: 600 mg Multivitamins (Theragran Tab*) 1 tab PO DAILY CELSO Last Admin: 12/21/16 08:12 Dose: 1 tab Nicotine (Nicotine Inhaler*) 10 mg INH Q2H PRN PRN Reason: CRAVING Last Admin: 12/20/16 19:18 Dose: 10 mg Prazosin HCl (Minipress Cap*) 1 mg PO BEDTIME CELSO Last Admin: 08/15/17 20:13 Dose: 1 mg Trazodone HCl (Desyrel Tab*) 50 mg PO BEDTIME CELSO Last Admin: 12/20/16 20:13 Dose: 50 mg - Discharge Plan Discharge Plan: Outpatient Follow Up Outpatient Program: [facility]
[2016-12-21] MEDS: Nicotine Inhaler* 10 MG AMP INH PRN (19:09)
[2016-12-21] MEDS: ARIPiprazole TAB* 15 MG PO SCH (20:40)
[2016-12-21] MEDS: traZODone TAB* 50 MG TAB PO SCH (20:40)
[2016-12-21] MEDS: Gabapentin CAP(*) 300 MG PO PRN (20:41)
[2016-12-21] MEDS: Prazosin CAP* 1 MG PO SCH (20:41)
[2016-12-22] MEDS: FLUoxetine CAP* 20 MG PO SCH (07:30)
[2016-12-22] MEDS: Gabapentin CAP(*) 300 MG PO PRN (07:30)
[2016-12-22] MEDS: Vitamin THERAPEUTIC TAB PO SCH (07:30)
[2016-12-22] MEDS: Nicotine Inhaler* 10 MG AMP INH PRN ×2 (07:31→17:34)
[2016-12-22] MEDS: Ibuprofen TAB* 600 MG PO PRN ×2 (08:05→17:25)
[2016-12-22] MEDS: Acetaminophen TAB* 325 MG PO PRN (08:05)
[2016-12-22] MEDS: clonazePAM TAB(*) 1 MG PO PRN ×2 (08:20→21:28)
--- NOTE | 2016-12-22 12:11 | PN ---
Subjective - Subjective Subjective: Patient reported continued L rib pain to staff. Instructed to continue alternating apap and ibuprofen. Patient reports decrease in pain and increase in ROM. Staff notes she was attending to internal stimuli during group. She reports continued AH but improved frequency. She states "I think I get things confused. " She goes on to describe past traumatic effects and thoughts of these causing misconceptions and fear. She agrees to increase in po abilify to target symptoms. Objective - Appearance Appearance: Well Developed/Nourished Dysmorphic Features: No Hygiene: Normal Grooming: Fairly Well Kept - Behavior Psychomotor Activities: Normal Exhibits Abnormal Movement: No - Attitude and Relatedness Attitude and Relatedness: Cooperative Eye Contact: Good - Speech Quality: Unpressured Latencies: Normal Quantity: Appropriate - Mood Patient's Decription of Mood: "Okay" - Affect Observed Affect: Non-labile Affect Consistent with: Euthymia - Thought Process Patient's Thought Process: Coherent, Goal Directed, Tangential - past trauma Thought Content: No Passive Wish, No Suicidal Planning, No Homicidal Ideation, No Paranoid Ideation - Sensorium Experiencing Hallucinations: Yes Type of Hallucinations: Visual: No, Auditory: Yes, Command: No - Level of Consciousness Level of Consciousness: Alert Orientation: Yes Intact, Yes Orientated to Time, Yes Orientated to Place, Yes Orientated to Person - Impulse Control Impulse Control: Tenuous - Insight and Judgement Insight and Judgement: Fair - Group Participation Particating in Group Activities: Yes - Medication Management Medication Management Adherence: Yes Assessment - Assessment Merits Inpatient Hospitalization: For Immediate Safety, For Stabilization, Consolidate Improvements, For Discharge Planning Inpatient DSM-IV Dx: schizoaffective d/o Clinical Impression: Diana is a 41yo female with history of psychosis and substance use. Her toxicology was negative in the ED. She has been [facility] at [facility] and has had multiple brief psychiatric hospitalizations in the [facility]. She is responding well to oral abilify and agreed to trial of injectable. Will increase po coverage during initiation of injectable. She no longer meets requirement for need for superintendent terminal hospitalization and agrees to follow up with outpatient services. She is vulnerable in the community if discharged without a safe plan. Plan - Plan Treatment Plan: Name: DIANA LIN Birthdate: 1975 [id number] continue current medications. Patient no longer meets requirement for alf hospitalization. She had her initial abilify maintenna injection on 12/12/16 and will continue oral aripiprazole for 14 days afterwards. Will increase oral aripiprazole to 20mg po qhs during transition. Discharge planning will pursue [facility] and [place] services. will consider emergency housing if other options are not viable. Continued Medication Management: Start Medication Medications: Current Medications Acetaminophen (Tylenol Tab*) 650 mg PO Q4H PRN PRN Reason: PAIN or TEMP > 101 F Last Admin: 12/22/16 08:05 Dose: 650 mg Al Hydrox/Mg Hydrox/Simethicone (Maalox Plus*) 30 ml PO Q4H PRN PRN Reason: INDIGESTION Last Admin: 12/20/16 09:49 Dose: 30 ml Aripiprazole (Abilify Maintena (Nf)) 400 mg IM Q28D [facility] Last Admin: 12/12/16 21:16 Dose: 400 mg Aripiprazole (Abilify Tab*) 20 mg PO BEDTIME [facility] Stop: 12/25/16 21:05 Last Admin: 12/21/16 20:40 Dose: 15 mg Clonazepam (Klonopin Tab(*)) 1 mg PO BID PRN PRN Reason: AGITATION/ANXIETY Last Admin: 12/22/16 08:20 Dose: 1 mg Device (Nicotine Mouth Piece*) 1 each INH .CARTRIDGE [facility] Last Admin: 12/15/16 12:26 Dose: 1 each Docusate Sodium (Colace Cap*) 100 mg PO BID PRN PRN Reason: CONSTIPATION Last Admin: 12/21/16 08:14 Dose: 100 mg Fluoxetine HCl (Prozac Cap*) 20 mg PO DAILY [facility] Last Admin: 12/22/16 07:30 Dose: 20 mg Gabapentin (Neurontin Cap(*)) 300 mg PO TID PRN PRN Reason: ANXIETY Last Admin: 12/22/16 07:30 Dose: 300 mg Ibuprofen (Motrin Tab*) 600 mg PO Q6H PRN PRN Reason: PAIN Last Admin: 12/22/16 08:05 Dose: 600 mg Multivitamins (Theragran Tab*) 1 tab PO DAILY [facility] Last Admin: 12/22/16 07:30 Dose: 1 tab Nicotine (Nicotine Inhaler*) 10 mg INH Q2H PRN PRN Reason: CRAVING Last Admin: 12/22/16 07:31 Dose: 10 mg Prazosin HCl (Minipress Cap*) 1 mg PO BEDTIME [facility]EL[facility] Last Admin: 12/21/16 20:41 Dose: 1 mg Trazodone HCl (Desyrel Tab*) 50 mg PO BEDTIME [facility]ELSO Last Admin: 12/21/16 20:40 Dose: 50 mg - Discharge Plan Discharge Plan: [facility]
--- NOTE | 2016-12-22 15:54 | PN ---
MHU: Group Therapy Note - Service Type Service Type: [id number] Group Psychotherapy - Group Participation Patient Participating in Group: No
[2016-12-22] MEDS: traZODone TAB* 50 MG TAB PO SCH (21:29)
[2016-12-22] MEDS: Prazosin CAP* 1 MG PO SCH (21:29)
[2016-12-22] MEDS: ARIPiprazole TAB* 15 MG PO SCH (21:29)
[2016-12-23] MEDS: Gabapentin CAP(*) 300 MG PO PRN (06:29)
[2016-12-23] MEDS: Vitamin THERAPEUTIC TAB PO SCH (08:31)
[2016-12-23] MEDS: FLUoxetine CAP* 20 MG PO SCH (08:31)
[2016-12-23] MEDS: Ibuprofen TAB* 600 MG PO PRN ×2 (08:32→15:42)
[2016-12-23] MEDS: clonazePAM TAB(*) 1 MG PO PRN ×2 (08:54→20:04)
[2016-12-23] MEDS: Acetaminophen TAB* 325 MG PO PRN ×2 (11:07→18:48)
--- NOTE | 2016-12-23 15:51 | PN ---
Subjective - Subjective Service Type: [id number] Hosp care 15 min low complexity Subjective: Patient continues to be pleasant and in behavioral control. She expresses anxiety about housing placement in that she does not want her apt to be broken into. She states disappointment that [place] screening was postponed until next week. She reports continued L rib pain radiating to back, intermittent and especially upon deep inhalation, cough or hiccups. Agrees to obtain CXR to r/o causes other than intercostal muscle strain. Objective - Appearance Appearance: Well Developed/Nourished Dysmorphic Features: No Hygiene: Normal Grooming: Well Kept - Behavior Psychomotor Activities: Normal Exhibits Abnormal Movement: No - Attitude and Relatedness Attitude and Relatedness: Cooperative Eye Contact: Good - Speech Quality: Unpressured Latencies: Normal Quantity: Appropriate - Mood Patient's Decription of Mood: "disappointed" - Affect Observed Affect: Good Affect Consistent with: Euthymia - Thought Process Patient's Thought Process: Incoherent, Goal Directed, Circumstantial - L rib pain Thought Content: No Passive Wish, No Suicidal Planning, No Homicidal Ideation, No Paranoid Ideation - Sensorium Experiencing Hallucinations: Yes Type of Hallucinations: Visual: No, Auditory: Yes - internal dialogue, Command: No - Level of Consciousness Level of Consciousness: Alert Orientation: Yes Intact, Yes Orientated to Time, Yes Orientated to Place, Yes Orientated to Person - Impulse Control Impulse Control: Intact - Insight and Judgement Insight and Judgement: Fair - Group Participation Particating in Group Activities: Yes - Medication Management Medication Management Adherence: Yes Assessment - Assessment Merits Inpatient Hospitalization: For Stabilization, For Discharge Planning, Pending Safe DC Plan Inpatient DSM-IV Dx: schizoaffective d/o Clinical Impression: Diana is a 41yo female with history of psychosis and substance use. Her toxicology was negative in the ED. She has been intermittently present at [facility] and has had multiple brief psychiatric hospitalizations in the [facility] region. She is responding well to oral abilify and agreed to trial of injectable. Will increase po coverage during initiation of injectable. She no longer meets requirement for need for intermediate hospitalization and agrees to follow up with outpatient services. She is vulnerable in the community if discharged without a safe plan. Plan - Plan Treatment Plan: Name: DIANA LIN Birthdate: 1975 [id number] continue current medications. Patient no longer meets requirement for intermediate hospitalization. She had her initial abilify maintenna injection on 12/12/16 and will continue oral aripiprazole for 14 days afterwards. Will increase oral aripiprazole to 20mg po qhs during transition. Discharge planning will pursue [facility] and [place] services. will consider emergency housing if other options are not viable. Will obtain CXR due to c/o continued L rib pain. Continued Medication Management: Different Medication Medications: Current Medications Acetaminophen (Tylenol Tab*) 650 mg PO Q4H PRN PRN Reason: PAIN or TEMP > 101 F Last Admin: 12/23/16 11:07 Dose: 650 mg Al Hydrox/Mg Hydrox/Simethicone (Maalox Plus*) 30 ml PO Q4H PRN PRN Reason: INDIGESTION Last Admin: 12/20/16 09:49 Dose: 30 ml Aripiprazole (Abilify Maintena (Nf)) 400 mg IM Q28D [facility] Last Admin: 12/12/16 21:16 Dose: 400 mg Aripiprazole (Abilify Tab*) 15 mg PO BEDTIME [facility] Stop: 12/25/16 21:05 Last Admin: 12/22/16 21:29 Dose: 15 mg Clonazepam (Klonopin Tab(*)) 1 mg PO BID PRN PRN Reason: AGITATION/ANXIETY Last Admin: 12/23/16 08:54 Dose: 1 mg Device (Nicotine Mouth Piece*) 1 each INH .CARTRIDGE [facility] Last Admin: 12/15/16 12:26 Dose: 1 each Docusate Sodium (Colace Cap*) 100 mg PO BID PRN PRN Reason: CONSTIPATION Last Admin: 12/21/16 08:14 Dose: 100 mg Fluoxetine HCl (Prozac Cap*) 20 mg PO DAILY [facility] Last Admin: 12/23/16 08:31 Dose: 20 mg Gabapentin (Neurontin Cap(*)) 300 mg PO TID PRN PRN Reason: ANXIETY Last Admin: 12/23/16 06:29 Dose: 300 mg Ibuprofen (Motrin Tab*) 600 mg PO Q6H PRN PRN Reason: PAIN Last Admin: 12/23/16 15:42 Dose: 600 mg Multivitamins (Theragran Tab*) 1 tab PO DAILY [facility] Last Admin: 12/23/16 08:31 Dose: 1 tab Nicotine (Nicotine Inhaler*) 10 mg INH Q2H PRN PRN Reason: CRAVING Last Admin: 12/22/16 17:34 Dose: 10 mg Prazosin HCl (Minipress Cap*) 1 mg PO BEDTIME [facility] Last Admin: 12/22/16 21:29 Dose: 1 mg Trazodone HCl (Desyrel Tab*) 50 mg PO BEDTIME [facility] Last Admin: 12/22/16 21:29 Dose: 50 mg - Discharge Plan Discharge Plan: Outpatient Follow Up Outpatient Program: [facility]
--- NOTE | 2016-12-23 16:06 | RAD ---
HISTORY: Left rib pain COMPARISONS: December 05, 2016 VIEWS: 4: Frontal dual-energy and lateral views of the chest. FINDINGS: CARDIOMEDIASTINAL SILHOUETTE: The cardiomediastinal silhouette is normal. DILEEP: The dileep are normal. PLEURA: The costophrenic angles are sharp. No pleural abnormalities are noted. LUNG PARENCHYMA: The lungs are clear. ABDOMEN: The upper abdomen is clear. There is no subphrenic gas. BONES AND SOFT TISSUES: No bone or soft tissue abnormalities are noted. OTHER: None. IMPRESSION: NO ACTIVE CARDIOPULMONARY DISEASE.
[2016-12-23] MEDS: Nicotine Inhaler* 10 MG AMP INH PRN (18:48)
[2016-12-23] MEDS: Prazosin CAP* 1 MG PO SCH (20:04)
[2016-12-23] MEDS: ARIPiprazole TAB* 15 MG PO SCH (20:05)
[2016-12-23] MEDS: traZODone TAB* 50 MG TAB PO SCH (20:05)
[2016-12-24] MEDS: Vitamin THERAPEUTIC TAB PO SCH (07:58)
[2016-12-24] MEDS: FLUoxetine CAP* 20 MG PO SCH (07:58)
[2016-12-24] MEDS: Nicotine Inhaler* 10 MG AMP INH PRN (07:59)
[2016-12-24] MEDS: Ibuprofen TAB* 600 MG PO PRN ×2 (08:01→17:00)
[2016-12-24] MEDS: clonazePAM TAB(*) 1 MG PO PRN ×2 (08:49→21:26)
[2016-12-24] MEDS: Gabapentin CAP(*) 300 MG PO PRN (10:37)
[2016-12-24] MEDS: Acetaminophen TAB* 325 MG PO PRN (10:37)
[2016-12-24] MEDS: traZODone TAB* 50 MG TAB PO SCH (21:24)
[2016-12-24] MEDS: ARIPiprazole TAB* 15 MG PO SCH (21:24)
[2016-12-24] MEDS: Prazosin CAP* 1 MG PO SCH (21:24)
[2016-12-25] MEDS: Ibuprofen TAB* 600 MG PO PRN ×3 (06:11→21:23)
[2016-12-25] MEDS: Vitamin THERAPEUTIC TAB PO SCH (08:55)
[2016-12-25] MEDS: FLUoxetine CAP* 20 MG PO SCH (08:55)
[2016-12-25] MEDS: Nicotine Inhaler* 10 MG AMP INH PRN ×2 (08:57→18:10)
[2016-12-25] MEDS: traZODone TAB* 50 MG TAB PO SCH (21:19)
[2016-12-25] MEDS: Prazosin CAP* 1 MG PO SCH (21:19)
[2016-12-25] MEDS: ARIPiprazole TAB* 15 MG PO SCH (21:19)
[2016-12-26] MEDS: clonazePAM TAB(*) 1 MG PO PRN (01:50)
[2016-12-26] MEDS: Ibuprofen TAB* 600 MG PO PRN ×2 (06:15→16:57)
[2016-12-26] MEDS: FLUoxetine CAP* 20 MG PO SCH (09:26)
[2016-12-26] MEDS: Vitamin THERAPEUTIC TAB PO SCH (09:26)
[2016-12-26] MEDS: Nicotine Inhaler* 10 MG AMP INH PRN ×2 (10:06→20:45)
[2016-12-26] MEDS ORDERED: Cyclobenzaprine TAB* 10 MG PO ONE (12:03)
--- NOTE | 2016-12-26 12:15 | PN ---
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 She hopes to meet with [place] staff this week. She expresses readiness to stay in temporary housing but does not want to sabotage her place on a wait list. She reports decrease in anxiety and requests decrease in clonazepam dose. Patient reports improvement in rib pain and recognizes that she has been coughing moreso. States understanding of likely due to recent dx of bronchitis and not smoking cigarettes. She requests increase in trazodone due to waking in middle of night. Objective - Appearance Appearance: Well Developed/Nourished Dysmorphic Features: No Hygiene: Normal Grooming: Well Kept - Behavior Psychomotor Activities: Normal Exhibits Abnormal Movement: No - Attitude and Relatedness Attitude and Relatedness: Cooperative Eye Contact: Good - Speech Quality: Unpressured Latencies: Normal Quantity: Appropriate - Mood Patient's Decription of Mood: "better" - Affect Observed Affect: Good Affect Consistent with: Euthymia - Thought Process Patient's Thought Process: Coherent, Goal Directed Thought Content: No Passive Wish, No Suicidal Planning, No Homicidal Ideation, No Paranoid Ideation - Sensorium Experiencing Hallucinations: No, Sensorium is Clear Type of Hallucinations: Visual: No, Auditory: No, Command: No - Level of Consciousness Level of Consciousness: Alert Orientation: Yes Intact, Yes Orientated to Time, Yes Orientated to Place, Yes Orientated to Person - Impulse Control Impulse Control: Intact - Insight and Judgement Insight and Judgement: Good - Group Participation Particating in Group Activities: Yes - Medication Management Medication Management Adherence: Yes Assessment - Assessment Merits Inpatient Hospitalization: For Stabilization, For Discharge Planning Inpatient DSM-IV Dx: schizoaffective d/o Clinical Impression: Diana is a 41yo female with history of psychosis and substance use. Her toxicology was negative in the ED. She has been intermittently present at [facility] and has had multiple brief psychiatric hospitalizations in the [facility] region. She is responding well to oral abilify and agreed to trial of injectable. She no longer meets requirement for need for prison hospitalization and agrees to follow up with outpatient services. She is vulnerable in the community if discharged without a safe plan and is awaiting a screening interview with [facility]. Plan - Plan Treatment Plan: Name: DIANA LIN Birthdate: 1975 [id number] continue current medications and observation status. Patient no longer meets requirement for prison hospitalization. She had her initial abilify maintenna injection on 12/12/16 and completed oral abilify for 14 days afterwards. Discharge planning will pursue [facility] and [place] services. will consider temporary emergency housing if other options are not viable. Continued Medication Management: Different Medication Medications: Current Medications Acetaminophen (Tylenol Tab*) 650 mg PO Q4H PRN PRN Reason: PAIN or TEMP > 101 F Last Admin: 12/24/16 10:37 Dose: 650 mg Al Hydrox/Mg Hydrox/Simethicone (Maalox Plus*) 30 ml PO Q4H PRN PRN Reason: INDIGESTION Last Admin: 12/20/16 09:49 Dose: 30 ml Aripiprazole (Abilify Maintena (Nf)) 400 mg IM Q28D [facility] Last Admin: 12/12/16 21:16 Dose: 400 mg Clonazepam (Klonopin Tab(*)) 0.5 mg PO BID PRN PRN Reason: AGITATION/ANXIETY Cyclobenzaprine HCl (Flexeril Tab*) 10 mg PO ONCE ONE Stop: 12/26/16 12:04 Device (Nicotine Mouth Piece*) 1 each INH .CARTRIDGE [facility] Last Admin: 12/15/16 12:26 Dose: 1 each Docusate Sodium (Colace Cap*) 100 mg PO BID PRN PRN Reason: CONSTIPATION Last Admin: 12/21/16 08:14 Dose: 100 mg Fluoxetine HCl (Prozac Cap*) 20 mg PO DAILY [facility] Last Admin: 12/26/16 09:26 Dose: 20 mg Gabapentin (Neurontin Cap(*)) 300 mg PO TID PRN PRN Reason: ANXIETY Last Admin: 12/24/16 10:37 Dose: 300 mg Ibuprofen (Motrin Tab*) 600 mg PO Q6H PRN PRN Reason: PAIN Last Admin: 12/26/16 06:15 Dose: 600 mg Multivitamins (Theragran Tab*) 1 tab PO DAILY [facility] Last Admin: 12/26/16 09:26 Dose: 1 tab Nicotine (Nicotine Inhaler*) 10 mg INH Q2H PRN PRN Reason: CRAVING Last Admin: 12/26/16 10:06 Dose: 10 mg Prazosin HCl (Minipress Cap*) 1 mg PO BEDTIME [facility] Last Admin: 12/25/16 21:19 Dose: 1 mg Trazodone HCl (Desyrel Tab*) 100 mg PO BEDTIME [facility] - Discharge Plan Discharge Plan: Outpatient Follow Up Outpatient Program: [facility]
--- NOTE | 2016-12-26 13:23 | PN ---
MHU: Group Therapy Note - Service Type Service Type: [id number] Group Psychotherapy - Cognitive Behavioral Group Therapy ( CBT):Patient was attentive and participatory in CBT programming this morning, and remained in good behavioral control. Patient expressed positive insights regarding relevant treatment interventions and goals.
[2016-12-26] MEDS: Prazosin CAP* 1 MG PO SCH (20:42)
[2016-12-26] MEDS: traZODone TAB* 50 MG TAB PO SCH (20:42)
[2016-12-27] MEDS: Ibuprofen TAB* 600 MG PO PRN ×2 (06:28→17:22)
[2016-12-27] MEDS: clonazePAM TAB(*) 0.5 MG PO PRN ×3 (06:28→20:46)
[2016-12-27] MEDS: FLUoxetine CAP* 20 MG PO SCH (10:03)
[2016-12-27] MEDS: Vitamin THERAPEUTIC TAB PO SCH (10:04)
--- NOTE | 2016-12-27 11:27 | PN ---
MHU: Group Therapy Note - Service Type Service Type: [id number] Group Psychotherapy - Cognitive Behavioral Group Therapy ( CBT):Patient was attentive and participatory in CBT programming this morning, and remained in good behavioral control. Patient expressed positive insights regarding relevant treatment interventions and goals.
--- NOTE | 2016-12-27 15:42 | PN ---
Subjective - Subjective Service Type: [id number] Hosp care 15 min low complexity Subjective: Patient denies mood disturbances. She is participating in groups and interactive with peers. She reports mild improved sleep but woke once in the night. She denies pain or distress. Denies SI or SIB. Objective - Appearance Appearance: Well Developed/Nourished Dysmorphic Features: No Hygiene: Normal Grooming: Well Kept - Behavior Psychomotor Activities: Normal Exhibits Abnormal Movement: No - Attitude and Relatedness Attitude and Relatedness: Cooperative Eye Contact: Good - Speech Quality: Unpressured Latencies: Normal Quantity: Appropriate - Mood Patient's Decription of Mood: "Good" - Affect Observed Affect: Good Affect Consistent with: Euthymia - Thought Process Patient's Thought Process: Coherent, Goal Directed Thought Content: No Passive Wish, No Suicidal Planning, No Homicidal Ideation, No Paranoid Ideation - Sensorium Experiencing Hallucinations: No, Sensorium is Clear Type of Hallucinations: Visual: No, Auditory: No, Command: No - Level of Consciousness Level of Consciousness: Alert Orientation: Yes Intact, Yes Orientated to Time, Yes Orientated to Place, Yes Orientated to Person - Impulse Control Impulse Control: Intact - Insight and Judgement Insight and Judgement: Good - Group Participation Particating in Group Activities: Yes - Medication Management Medication Management Adherence: Yes Assessment - Assessment Merits Inpatient Hospitalization: Consolidate Improvements, For Discharge Planning Inpatient DSM-IV Dx: schizoaffective d/o Clinical Impression: Diana is a 41yo female with history of psychosis and substance use. Her toxicology was negative in the ED. She has been intermittently present at [facility] and has had multiple brief psychiatric hospitalizations in the [facility] region. She is responding well to oral abilify and agreed to trial of injectable. 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 She is vulnerable in the community if discharged without a safe plan and is awaiting a placement with [place] housing. Plan - Plan Treatment Plan: Name: DIANA LIN Birthdate: 1975 [id number] continue current medications and observation status. 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 She had her initial abilify maintenna injection on 12/12/16 and completed oral abilify for 14 days afterwards. Discharge planning will pursue [facility] and [place] services. will consider temporary emergency housing if other options are not viable. Continued Medication Management: Different Medication Medications: Current Medications Acetaminophen (Tylenol Tab*) 650 mg PO Q4H PRN PRN Reason: PAIN or TEMP > 101 F Last Admin: 12/24/16 10:37 Dose: 650 mg Al Hydrox/Mg Hydrox/Simethicone (Maalox Plus*) 30 ml PO Q4H PRN PRN Reason: INDIGESTION Last Admin: 12/20/16 09:49 Dose: 30 ml Aripiprazole (Abilify Maintena (Nf)) 400 mg IM Q28D [facility] Last Admin: 12/12/16 21:16 Dose: 400 mg Clonazepam (Klonopin Tab(*)) 0.5 mg PO BID PRN PRN Reason: AGITATION/ANXIETY Last Admin: 12/27/16 06:28 Dose: 0.5 mg Device (Nicotine Mouth Piece*) 1 each INH .CARTRIDGE [facility] Last Admin: 12/15/16 12:26 Dose: 1 each Docusate Sodium (Colace Cap*) 100 mg PO BID PRN PRN Reason: CONSTIPATION Last Admin: 12/21/16 08:14 Dose: 100 mg Fluoxetine HCl (Prozac Cap*) 20 mg PO DAILY [facility] Last Admin: 12/27/16 10:03 Dose: 20 mg Gabapentin (Neurontin Cap(*)) 300 mg PO TID PRN PRN Reason: ANXIETY Last Admin: 12/24/16 10:37 Dose: 300 mg Ibuprofen (Motrin Tab*) 600 mg PO Q6H PRN PRN Reason: PAIN Last Admin: 12/27/16 06:28 Dose: 600 mg Multivitamins (Theragran Tab*) 1 tab PO DAILY [facility] Last Admin: 12/27/16 10:04 Dose: 1 tab Nicotine (Nicotine Inhaler*) 10 mg INH Q2H PRN PRN Reason: CRAVING Last Admin: 12/26/16 20:45 Dose: 10 mg Prazosin HCl (Minipress Cap*) 1 mg PO BEDTIME [facility] Last Admin: 12/26/16 20:42 Dose: 1 mg Trazodone HCl (Desyrel Tab*) 100 mg PO BEDTIME [facility] Last Admin: 12/26/16 20:42 Dose: 100 mg - Discharge Plan Discharge Plan: Outpatient Follow Up Outpatient Program: [facility]
[2016-12-27] MEDS: Nicotine Inhaler* 10 MG AMP INH PRN (17:21)
[2016-12-27] MEDS: Prazosin CAP* 1 MG PO SCH (20:45)
[2016-12-27] MEDS: traZODone TAB* 50 MG TAB PO SCH (20:45)
[2016-12-28] MEDS: Nicotine Inhaler* 10 MG AMP INH PRN ×3 (07:39→20:56)
[2016-12-28] MEDS: FLUoxetine CAP* 20 MG PO SCH (08:15)
[2016-12-28] MEDS: Vitamin THERAPEUTIC TAB PO SCH (08:15)
[2016-12-28] MEDS: clonazePAM TAB(*) 0.5 MG PO PRN (08:17)
--- NOTE | 2016-12-28 13:49 | PN ---
Subjective - Subjective Subjective: Patient is euthymic with bright affect. She reports improved mood due to plan of having a [place] apartment on jan 06. She states she is interested in finding temporary housing until then if she does not sabotage her placement. She denies pain or physical problems other than current menstrual period. She denies AH/VH or SI. Objective - Appearance Appearance: Well Developed/Nourished Dysmorphic Features: No Hygiene: Normal Grooming: Well Kept - Behavior Psychomotor Activities: Normal Exhibits Abnormal Movement: No - Attitude and Relatedness Attitude and Relatedness: Cooperative Eye Contact: Good - Speech Quality: Unpressured Latencies: Normal Quantity: Appropriate - Mood Patient's Decription of Mood: "Great" - Affect Observed Affect: Good Affect Consistent with: Euthymia - Thought Process Patient's Thought Process: Coherent, Goal Directed Thought Content: No Passive Wish, No Suicidal Planning, No Homicidal Ideation, No Paranoid Ideation - Sensorium Experiencing Hallucinations: No, Sensorium is Clear Type of Hallucinations: Visual: No, Auditory: No, Command: No - Level of Consciousness Level of Consciousness: Alert Orientation: Yes Intact, Yes Orientated to Time, Yes Orientated to Place, Yes Orientated to Person - Impulse Control Impulse Control: Intact - Insight and Judgement Insight and Judgement: Good - Group Participation Particating in Group Activities: No Group Participation Comments: also working on disability paperwork - Medication Management Medication Management Adherence: Yes Assessment - Assessment Merits Inpatient Hospitalization: For Immediate Safety, Consolidate Improvements , Pending Safe DC Plan Inpatient DSM-IV Dx: schizoaffective d/o Clinical Impression: Diana is a 41yo female with history of psychosis and substance use. Her toxicology was negative in the ED. She has been intermittently present at [facility] and has had multiple brief psychiatric hospitalizations in the [facility]. She is responding well to oral abilify and agreed to trial of injectable. She no longer meets requirement for need for care home hospitalization and agrees to follow up with outpatient services. She is awaiting a placement with [place] housing. 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 Plan - Plan Treatment Plan: Name: DIANA LIN Birthdate: 1975 [id number] continue current medications and observation status. 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 She had her initial abilify maintenna injection on 12/12/16 and completed oral abilify for 14 days afterwards. Discharge planning will pursue [facility] and [place] services. will consider temporary emergency housing if other options are not viable. Continued Medication Management: Start Medication Medications: Current Medications Acetaminophen (Tylenol Tab*) 650 mg PO Q4H PRN PRN Reason: PAIN or TEMP > 101 F Last Admin: 12/24/16 10:37 Dose: 650 mg Al Hydrox/Mg Hydrox/Simethicone (Maalox Plus*) 30 ml PO Q4H PRN PRN Reason: INDIGESTION Last Admin: 12/20/16 09:49 Dose: 30 ml Aripiprazole (Abilify Maintena (Nf)) 400 mg IM Q28D [facility] Last Admin: 12/12/16 21:16 Dose: 400 mg Clonazepam (Klonopin Tab(*)) 0.5 mg PO BID PRN PRN Reason: AGITATION/ANXIETY Last Admin: 12/28/16 08:17 Dose: 0.5 mg Device (Nicotine Mouth Piece*) 1 each INH .CARTRIDGE [facility] Last Admin: 12/15/16 12:26 Dose: 1 each Docusate Sodium (Colace Cap*) 100 mg PO BID PRN PRN Reason: CONSTIPATION Last Admin: 12/21/16 08:14 Dose: 100 mg Fluoxetine HCl (Prozac Cap*) 20 mg PO DAILY [facility] Last Admin: 12/28/16 08:15 Dose: 20 mg Gabapentin (Neurontin Cap(*)) 300 mg PO TID PRN PRN Reason: ANXIETY Last Admin: 12/24/16 10:37 Dose: 300 mg Ibuprofen (Motrin Tab*) 600 mg PO Q6H PRN PRN Reason: PAIN Last Admin: 12/27/16 17:22 Dose: 600 mg Multivitamins (Theragran Tab*) 1 tab PO DAILY [facility] Last Admin: 12/28/16 08:15 Dose: 1 tab Nicotine (Nicotine Inhaler*) 10 mg INH Q2H PRN PRN Reason: CRAVING Last Admin: 12/28/16 07:39 Dose: 10 mg Prazosin HCl (Minipress Cap*) 1 mg PO BEDTIME [facility] Last Admin: 12/27/16 20:45 Dose: 1 mg Trazodone HCl (Desyrel Tab*) 100 mg PO BEDTIME [facility] Last Admin: 12/27/16 20:45 Dose: 100 mg - Discharge Plan Discharge Plan: Outpatient Follow Up Outpatient Program: Anast[facility]
[2016-12-28] MEDS: Prazosin CAP* 1 MG PO SCH (20:28)
[2016-12-28] MEDS: traZODone TAB* 50 MG TAB PO SCH (20:29)
[2016-12-28] MEDS: Mouth Piece, Nicotine* 1 EACH CARTRIDGE INH SCH (20:56)
[2016-12-29] MEDS: Vitamin THERAPEUTIC TAB PO SCH (10:06)
[2016-12-29] MEDS: FLUoxetine CAP* 20 MG PO SCH (10:06)
--- NOTE | 2016-12-29 11:43 | PN ---
MHU: Group Therapy Note - Service Type Service Type: [id number] Group Psychotherapy - Cognitive Behavioral Group Therapy ( CBT):Patient presented in CBT programming as disorganized and disruptive in discussion and needed repeated redirection to attend to presented materials.
[2016-12-29] MEDS: clonazePAM TAB(*) 0.5 MG PO PRN ×2 (14:37→22:05)
--- NOTE | 2016-12-29 15:12 | PN ---
Subjective - Subjective Service Type: 16911 Hosp care 15 min low complexity Subjective: No change in patient status. She continues to participate in programming and is interactive with peers and staff. She has noted to have been redirected for engaging in arguments with peers. Objective - Appearance Appearance: Well Developed/Nourished Dysmorphic Features: No Hygiene: Normal Grooming: Well Kept - Behavior Psychomotor Activities: Normal Exhibits Abnormal Movement: No - Attitude and Relatedness Attitude and Relatedness: Cooperative Eye Contact: Good - Speech Quality: Unpressured Latencies: Normal Quantity: Appropriate - Affect Observed Affect: Good Affect Consistent with: Euthymia - Thought Process Patient's Thought Process: Coherent, Goal Directed Thought Content: No Passive Wish, No Suicidal Planning, No Homicidal Ideation, No Paranoid Ideation - Sensorium Experiencing Hallucinations: No, Sensorium is Clear Type of Hallucinations: Visual: No, Auditory: No, Command: No - Level of Consciousness Level of Consciousness: Alert Orientation: Yes Intact, Yes Orientated to Time, Yes Orientated to Place, Yes Orientated to Person - Impulse Control Impulse Control: Intact - Insight and Judgement Insight and Judgement: Good - Group Participation Particating in Group Activities: Yes - Medication Management Medication Management Adherence: Yes Assessment - Assessment Merits Inpatient Hospitalization: Consolidate Improvements, For Discharge Planning Inpatient DSM-IV Dx: schizoaffective d/o Clinical Impression: Diana is a 41yo female with history of psychosis and substance use. Her toxicology was negative in the ED. She has been intermittently present at [facility] and has had multiple brief psychiatric hospitalizations in the [facility]. She is responding well to oral abilify and agreed to trial of injectable. She no longer meets requirement for need for prison hospitalization and agrees to follow up with outpatient services. She is awaiting a placement with [place] housing. 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 Plan - Plan Treatment Plan: Name: DIANA LIN Birthdate: 1975 [id number] continue current medications and observation status. 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 She had her initial abilify maintenna injection on 12/12/16 and completed oral abilify for 14 days afterwards. Discharge planning will pursue [facility] and [place] services. will consider temporary emergency housing if other options are not viable. Continued Medication Management: Different Medication Medications: Current Medications Acetaminophen (Tylenol Tab*) 650 mg PO Q4H PRN PRN Reason: PAIN or TEMP > 101 F Last Admin: 12/24/16 10:37 Dose: 650 mg Al Hydrox/Mg Hydrox/Simethicone (Maalox Plus*) 30 ml PO Q4H PRN PRN Reason: INDIGESTION Last Admin: 12/20/16 09:49 Dose: 30 ml Aripiprazole (Abilinaheed Maintena (Nf)) 400 mg IM Q28D [facility] Last Admin: 12/12/16 21:16 Dose: 400 mg Clonazepam (Klonopin Tab(*)) 0.5 mg PO BID PRN PRN Reason: AGITATION/ANXIETY Last Admin: 12/29/16 14:37 Dose: 0.5 mg Device (Nicotine Mouth Piece*) 1 each INH .CARTRIDGE [facility] Last Admin: 12/28/16 20:56 Dose: 1 each Docusate Sodium (Colace Cap*) 100 mg PO BID PRN PRN Reason: CONSTIPATION Last Admin: 12/21/16 08:14 Dose: 100 mg Fluoxetine HCl (Prozac Cap*) 20 mg PO DAILY [facility] Last Admin: 12/29/16 10:06 Dose: 20 mg Gabapentin (Neurontin Cap(*)) 300 mg PO TID PRN PRN Reason: ANXIETY Last Admin: 12/24/16 10:37 Dose: 300 mg Ibuprofen (Motrin Tab*) 600 mg PO Q6H PRN PRN Reason: PAIN Last Admin: 12/27/16 17:22 Dose: 600 mg Multivitamins (Theragran Tab*) 1 tab PO DAILY [facility] Last Admin: 12/29/16 10:06 Dose: 1 tab Nicotine (Nicotine Inhaler*) 10 mg INH Q2H PRN PRN Reason: CRAVING Last Admin: 12/28/16 20:56 Dose: 10 mg Prazosin HCl (Minipress Cap*) 1 mg PO BEDTIME [facility] Last Admin: 12/28/16 20:28 Dose: 1 mg Trazodone HCl (Desyrel Tab*) 100 mg PO BEDTIME [facility] Last Admin: 12/28/16 20:29 Dose: 100 mg - Discharge Plan Discharge Plan: Outpatient Follow Up Outpatient Program: [facility]
[2016-12-29] MEDS: traZODone TAB* 50 MG TAB PO SCH (22:03)
[2016-12-29] MEDS: Prazosin CAP* 1 MG PO SCH (22:03)
[2016-12-30] MEDS: FLUoxetine CAP* 20 MG PO SCH (09:26)
[2016-12-30] MEDS: Vitamin THERAPEUTIC TAB PO SCH (09:26)
[2016-12-30] MEDS: Nicotine Inhaler* 10 MG AMP INH PRN ×2 (09:55→18:55)
--- NOTE | 2016-12-30 11:50 | PN ---
MHU: Group Therapy Note - Service Type Service Type: [id number] Group Psychotherapy - Cognitive Behavioral Group Therapy ( CBT):Patient was attentive and participatory in CBT programming this morning, and remained in good behavioral control. Patient expressed positive insights regarding relevant treatment interventions and goals.
--- NOTE | 2016-12-30 15:34 | PN ---
Subjective - Subjective Service Type: 71611 Hosp care 15 min low complexity Subjective: Patient notified of likely plan to discharge on monday. Patient reports anxiety about housing and states she could probably stay with friends she met on the unit. She states understanding of technical proposal writer's suggestion to avoid placing herself in vulnerable situations. She reports she is working on disability papers. She reports sleeping well and feels rested. Objective - Appearance Appearance: Well Developed/Nourished Dysmorphic Features: No Hygiene: Normal Grooming: Well Kept - Behavior Psychomotor Activities: Normal Exhibits Abnormal Movement: No - Attitude and Relatedness Attitude and Relatedness: Cooperative Eye Contact: Good - Speech Quality: Unpressured Latencies: Normal Quantity: Appropriate - Mood Patient's Decription of Mood: "Good" - Affect Observed Affect: Good Affect Consistent with: Euthymia - Thought Process Patient's Thought Process: Coherent, Goal Directed Thought Content: No Passive Wish, No Suicidal Planning, No Homicidal Ideation, No Paranoid Ideation - Sensorium Experiencing Hallucinations: No, Sensorium is Clear Type of Hallucinations: Visual: Yes, Auditory: Yes, Command: Yes - Level of Consciousness Level of Consciousness: Alert Orientation: Yes Intact, Yes Orientated to Time, Yes Orientated to Place, Yes Orientated to Person - Impulse Control Impulse Control: Intact - Insight and Judgement Insight and Judgement: Good - Group Participation Particating in Group Activities: Yes - Medication Management Medication Management Adherence: Yes Assessment - Assessment Merits Inpatient Hospitalization: Consolidate Improvements, For Discharge Planning, Pending Safe DC Plan Inpatient DSM-IV Dx: schizoaffective d/o Clinical Impression: Diana is a 41yo female with history of psychosis and substance use. Her toxicology was negative in the ED. She has been intermittently present at [facility] and has had multiple brief psychiatric hospitalizations in the [facility]. She is responding well to oral abilify and agreed to trial of injectable. She no longer meets requirement for need for watermaster hospitalization and agrees to follow up with outpatient services. She is awaiting a placement with [facility]. 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 Plan - Plan Treatment Plan: Name: DIANA LIN Birthdate: 1975 [id number] continue current medications and observation status. Patient no longer meets requirement for fdc hospitalization. She had her initial abilify maintenna injection on 12/12/16 and completed oral abilify for 14 days afterwards. Discharge planning will pursue [facility] and [place] services. will consider temporary emergency housing if other options are not viable. Continued Medication Management: Different Medication Medications: Current Medications Acetaminophen (Tylenol Tab*) 650 mg PO Q4H PRN PRN Reason: PAIN or TEMP > 101 F Last Admin: 12/24/16 10:37 Dose: 650 mg Al Hydrox/Mg Hydrox/Simethicone (Maalox Plus*) 30 ml PO Q4H PRN PRN Reason: INDIGESTION Last Admin: 12/20/16 09:49 Dose: 30 ml Aripiprazole (Abilify Maintena (Nf)) 400 mg IM Q28D [facility] Last Admin: 12/12/16 21:16 Dose: 400 mg Clonazepam (Klonopin Tab(*)) 0.5 mg PO BID PRN PRN Reason: AGITATION/ANXIETY Last Admin: 12/29/16 22:05 Dose: 0.5 mg Device (Nicotine Mouth Piece*) 1 each INH .CARTRIDGE [facility] Last Admin: 12/28/16 20:56 Dose: 1 each Docusate Sodium (Colace Cap*) 100 mg PO BID PRN PRN Reason: CONSTIPATION Last Admin: 12/21/16 08:14 Dose: 100 mg Fluoxetine HCl (Prozac Cap*) 20 mg PO DAILY [facility] Last Admin: 12/30/16 09:26 Dose: 20 mg Gabapentin (Neurontin Cap(*)) 300 mg PO TID PRN PRN Reason: ANXIETY Last Admin: 12/24/16 10:37 Dose: 300 mg Ibuprofen (Motrin Tab*) 600 mg PO Q6H PRN PRN Reason: PAIN Last Admin: 12/27/16 17:22 Dose: 600 mg Multivitamins (Theragran Tab*) 1 tab PO DAILY [facility] Last Admin: 12/30/16 09:26 Dose: 1 tab Nicotine (Nicotine Inhaler*) 10 mg INH Q2H PRN PRN Reason: CRAVING Last Admin: 12/30/16 09:55 Dose: 10 mg Prazosin HCl (Minipress Cap*) 1 mg PO BEDTIME [facility] Last Admin: 12/29/16 22:03 Dose: 1 mg Trazodone HCl (Desyrel Tab*) 100 mg PO BEDTIME [facility] Last Admin: 12/29/16 22:03 Dose: 100 mg - Discharge Plan Discharge Plan: Outpatient Follow Up Outpatient Program: Anast[facility] Rodriguez [facility]
[2016-12-30] MEDS: clonazePAM TAB(*) 0.5 MG PO PRN (18:55)
[2016-12-30] MEDS: traZODone TAB* 50 MG TAB PO SCH (21:03)
[2016-12-30] MEDS: Prazosin CAP* 1 MG PO SCH (21:03)
[2016-12-31] MEDS: Nicotine Inhaler* 10 MG AMP INH PRN ×4 (07:46→20:23)
[2016-12-31] MEDS: Vitamin THERAPEUTIC TAB PO SCH (08:31)
[2016-12-31] MEDS: clonazePAM TAB(*) 0.5 MG PO PRN (08:31)
[2016-12-31] MEDS: FLUoxetine CAP* 20 MG PO SCH (08:31)
[2016-12-31] MEDS: Prazosin CAP* 1 MG PO SCH (20:23)
[2016-12-31] MEDS: traZODone TAB* 50 MG TAB PO SCH (20:24)
[2017-01-01] MEDS: Vitamin THERAPEUTIC TAB PO SCH (08:43)
[2017-01-01] MEDS: FLUoxetine CAP* 20 MG PO SCH (08:43)
[2017-01-01] MEDS: Nicotine Inhaler* 10 MG AMP INH PRN ×2 (08:44→20:51)
[2017-01-01] MEDS: clonazePAM TAB(*) 0.5 MG PO PRN ×2 (15:30→21:16)
[2017-01-01] MEDS: Prazosin CAP* 1 MG PO SCH (20:47)
[2017-01-01] MEDS: traZODone TAB* 50 MG TAB PO SCH (20:47)
[2017-01-02 08:29] VITALS: BP 84/57
[2017-01-02] MEDS: FLUoxetine CAP* 20 MG PO SCH (08:43)
[2017-01-02] MEDS: clonazePAM TAB(*) 0.5 MG PO PRN (08:43)
[2017-01-02] MEDS: Nicotine Inhaler* 10 MG AMP INH PRN (08:43)
[2017-01-02] MEDS: Vitamin THERAPEUTIC TAB PO SCH (08:43)
--- NOTE | 2017-01-02 11:57 | PN ---
MHU: Group Therapy Note - Service Type Service Type: [id number] Group Psychotherapy - Cognitive Behavioral Group Therapy ( CBT):Patient was attentive and participatory in CBT programming this morning, and remained in good behavioral control. Patient expressed positive insights regarding relevant treatment interventions and goals.
--- NOTE | 2017-01-02 14:55 | DS ---
CC: [facility]* DATE OF ADMISSION: 11/29/2016. DATE OF DISCHARGE: 01/02/2017. SUPERVISING PSYCHIATRIST: Dr. Soy Nolna* (dictated by JULIETTE Sandoval) . DISCHARGE DIAGNOSES: AXIS I: Schizophrenia, generalized anxiety disorder, rule out major depressive disorder. AXIS II: Deferred. AXIS III: No active medical problem. AXIS IV: Stressors related to social isolation and housing. AXIS V: 67. CONDITION: Improved. Diana is organized and well-related. She has benefited greatly from her hospitalization and states understanding of diagnosis of schizophrenia. She reports desire to continue with mental health services and the long-acting injectable of Abilify Maintena for schizophrenia. She has expressed willingness to continue with referral to [facility] and is anticipating a bed date of January 06. She denies depressive symptoms. She denies PTSD symptoms. She reports much improvement in mood and sleep and she denies nightmares, flashbacks or hypervigilance. She endorses mild anxiety related to change from inpatient admission to outpatient services. Otherwise denies anxiety. She hopes to decrease or stop use of Clonazepam in the future. She has had contact with her mother and with a close friend in the [place] area. They are supportive of helping her with temporary housing until her [place] apartment is available. Diana has been cooperative and pleasant while on the unit. She has participated fully in programming and received maximum benefit from hospitalization. MENTAL STATUS EXAM: The patient is a well-groomed, somewhat overweight female dressed in her own clothing. She appears her stated age. She is alert and oriented with good eye contact. Speech is normal rate and rhythm. Her affect is full. She is jovial at times. Her thought process is logical, coherent, and goal- directed. Her thought content is negative for AH, VH, delusions, SI, HI or . Instructions will be given to the patient by nursing staff. MEDICATIONS: 1. Albuterol inhaler two puffs inhaled q.6 hours prn cough or shortness of breath. 2. Docusate 100 mg p.o. b.i.d. prn constipation. 3. Fluoxetine 20 mg p.o. daily. 4. Gabapentin 300 mg p.o. t.i.d. prn anxiety. 5. Ibuprofen 600 mg p.o. b.i.d. pain or fever. 6. Nicotine patch 7 mg one patch transderm daily, remove at bedtime. 7. Prazosin 1 mg p.o. at bedtime. 8. Multivitamin one tab p.o. daily. 9. Clonazepam 1 mg p.o. b.i.d. prn anxiety. 10. Trazodone 100 mg p.o. at bedtime. 11. Abilify Maintena 400 mg IM q.month, her first and most recent injection was on December 12 and she is due January 10, the day after Labor Day. All of the above were electronically prescribed to [facility] in [place]. DIET: Regular. ACTIVITY: Ambulation as tolerated. Tobacco cessation assistance was provided to the patient. There are no pending labs or diagnostic studies at the time of discharge. FOLLOW-UP CARE: She will follow-up with [facility] for counseling and medication management. Intake appointments are being provided to her by discharge planning. HOSPITAL COURSE: A. Reason for admission: The patient presented to the emergency department with reports of suicidal ideation. She reported she was being terrorized by friends. She endorsed PTSD symptoms and paranoid delusions. She was admitted under voluntary status by the on-call psychiatrist. B. Psychiatric treatment rendered: During admission, Diana continued to present as psychotic and delusional. She was actively endorsing suicidal ideation. She was endorsing depressive symptoms and presented with insomnia. She endorsed auditory hallucinations. Collateral was obtained from her mother and it was evident that she had had multiple brief psychiatric hospitalizations in various towns in [facility] with little outpatient follow through. She continued to move from town to town and had a fixed delusion of various people who were trying to ruin her life. It was decided to pursue stabilization and consider state hospitalization if she was not responding to medications. Abilify was titrated and patient was showing mild improvement. She initially refused injectable medication; as she became more clear and organized, she accepted this offer and stated understanding of the intent to prevent further psychotic episodes. The patient was receptive to suggestions from staff and increasingly agreeable with the diagnosis of schizophrenia. She presented more organized and in behavioral control. She agreed to discharge planning to include [facility] for further supports in the community. It was decided that she was not appropriate for referral to state hospitalization. The patient continued to endorse mild auditory hallucinations and some PTSD symptoms. She responded well to an increase in Abilify and prazosin at bedtime for nightmares. She had been trialed on Seroquel for sleep. She expressed concern about weight gain and this was changed to Trazodone with good effect. Over the course of the hospitalization, the patient was increasingly cooperative and participated fully in programming. She was placed on many wait lists for various housing and community resources for persons of mental illness. She is estimated to have a bed date at the [facility] January 06. Hospitalization is no longer an immediate need and patient requests to stay with her mother and/or friends while awaiting [place] placement. She denies suicidal ideation. She presents as euthymic with full range of affect. She denies psychotic symptoms and reports intent to continue with mental health treatment. She also wants to pursue various jobs and education in the near future. The patient has been safe on all checks. She has remained on q.30 minute observation, allowed to go on staff pass. Due to the second generation antipsychotic, induction lipids and hemoglobin A1c were tested and these were within normal rates. While on the unit, the patient refrained from smoking cigarettes and was noted to have increase in cough and rib musculoskeletal pain likely secondary to cough. This was treated well with ibuprofen, Tylenol and one dose of Flexeril. Chest x- ray was obtained and there were no abnormalities observed. The patient will be encouraged to follow-up with primary care provider locally or she can do so on an outpatient basis. Diana has been very appreciative of psychiatric and social work and staff efforts. She is looking forward to discharge and to pursue goals in her life. She states understanding to return to the emergency room if symptoms worsen or persist. JULIETTE SANDOVAL [id number]/CPS #: [id number]
== END 2017-01-02 16:17 | disposition home or self-care (01) | DRG 750 ==
LOC: ED 02:08 → BSU 05:52
PROVIDERS: ADMIT Psychiatry & Neurology Psychiatry; ATTEND Psychiatry & Neurology Psychiatry
PROC: GZHZZZZ Group Psychotherapy (ICD-10-PCS; principal; 2016-12-02)
DX: F25.9 Schizoaffective disorder, unspecified (principal); R45.851 Suicidal ideations; Z91.19 Patient's noncompliance with other medical treatment and regimen; F41.1 Generalized anxiety disorder; F32.9 Major depressive disorder, single episode, unspecified; F43.10 Post-traumatic stress disorder, unspecified; J45.909 Unspecified asthma, uncomplicated; F17.210 Nicotine dependence, cigarettes, uncomplicated; J42 Unspecified chronic bronchitis; R07.81 Pleurodynia; Z84.2 Family history of other diseases of the genitourinary system; Z87.01 Personal history of pneumonia (recurrent)
CPT/HCPCS: 36415; 71020; 80053; 80061; 80307; 80320; 80329; 81003; 81015; 83036; 84443; 84702; 85025; 87086; 90853; 99222; 99231; 99232; 99238; 99406; A9270-GY; G0480

== ENCOUNTER 2017-01-05 22:24 | Emergency (ER) | payer MEDICAID ==
[2017-01-05 23:44] LABS: Hematocrit 35 % (35-47); Mean Corpuscular HGB Conc 34 g/dl (31-36); Mean Corpuscular Hemoglobin 31 pg (27-31); Mean Corpuscular Volume 90 fL (80-97); Mean Platelet Volume 8 um3 (7.4-10.4); Red Blood Count 3.93 10^6/ul (4.0-5.4); Red Cell Distribution Width 14 % (10.5-15); White Blood Count 10.5 10^3/ul (3.5-10.8)
[2017-01-05 23:58] LABS: ALT 11 U/L (7-52); AST 12 U/L (13-39); Acetaminophen < 15 mcg/mL; Albumin 3.8 g/dL (3.2-5.2); Alcohol 59 mg/dL (<10); Alkaline Phosphatase 41 U/L (34-104); Anion Gap 8 mmol/L (2-11); BUN/Creatinine Ratio 16.9 (8-20); Blood Urea Nitrogen 13 mg/dL (6-24); CO2 Carbon Dioxide 23 mmol/L (22-32); Calcium 8.7 mg/dL (8.6-10.3); Chloride 105 mmol/L (101-111); EGFR African American 107.3 (>60); EGFR Non-African American 83.5 (>60); Globulin 2.6 g/dL (2-4); Glucose 78 mg/dL (70-100); Potassium 3.5 mmol/L (3.5-5.0); Salicylate < 2.50 mg/dL (<30); Sodium 136 mmol/L (133-145); Total Protein 6.4 g/dL (6.4-8.9)
[2017-01-06 00:08] LABS: TSH (Thyroid Stimulating Horm) 1.39 mcIU/mL (0.34-5.60)
--- NOTE | 2017-01-06 01:00 | ED ---
Chico Romo Rebecca, scribed for Daniele Grande MD on 01/05/17 at 2318 . Psychiatric Complaint - HPI Summary HPI Summary: Pt is a 41 y/o F who comes to ED p/w anxiety, stating "I don't know what to do, I don't know where to go." Reports that she was discharged from a unit 2 days ago after a month and a half stay and she has an appointment to be admitted to [facility] tomorrow. She has been staying with her mom but mickie was planning on staying with a friend. However, now her friend is not responding to her calls. Denies SI, HI. PMHx anxiety, depression. - History Of Current Complaint Chief Complaint: EDMentalHealth Time Seen by Provider: 01/05/17 23:12 Hx Obtained From: Patient Onset/Duration: Still Present Character: Anxious Aggravating Factor(s): Other - Friends not responding Alleviating Factor(s): Nothing Related History: Positive For: Prior Psychiatric Issues - Anxiety, depression Has Suicidal: Denies: Thoughts Has Homicidal: Denies: Thoughts - Allergies/Home Medications Allergies/Adverse Reactions: Allergies Allergy/AdvReac Type Severity Reaction Status Date / Time No Known Allergies Allergy Verified 11/29/16 16:53 PMH/Surg Hx/FS Hx/Imm Hx Respiratory History: Reports: Hx Asthma, Hx Chronic Bronchitis, Hx Pneumonia Sensory History: Denies: Hx Cataracts, Hx Contacts or Glasses, Hx Hearing Aid, Hx Hearing Problem Opthamlomology History: Denies: Hx Cataracts, Hx Contacts or Glasses Psychiatric History: Reports: Hx Anxiety, Hx Depression Infectious Disease History: Denies: Hx Clostridium Difficile, Traveled Outside the [place] in Last 30 Days - Family History Known Family History: Positive: Other - Mother - hx of ovarian cysts - Social History Alcohol Use: Rare Hx Substance Use: No Substance Use Type: Reports: None Hx Tobacco Use: Yes Smoking Status (MU): Current Every Day Smoker Type: Cigarettes Amount Used/How Often: "4-5 CIGARETTES A DAY" Have You Smoked in the Last Year: Yes Review of Systems Negative: Fever Positive: Anxious, Other - NEGATIVE: SI, HI All Other Systems Reviewed And Are Negative: Yes Physical Exam Triage Information Reviewed: Yes Vital Signs On Initial Exam: Initial Vitals Temp Pulse Resp BP Pulse Ox 98.5 F 91 18 106/83 98 01/05/17 22:26 01/05/17 22:26 01/05/17 22:26 01/05/17 22:26 01/05/17 22:26 Vital Signs Reviewed: Yes Appearance: Positive: Well-Appearing, No Pain Distress Skin: Positive: Warm Head/Face: Positive: Normal Head/Face Inspection Eyes: Positive: GRACIA ENT: Positive: Hearing grossly normal Neck: Positive: Supple Respiratory/Lung Sounds: Positive: Breath Sounds Present Cardiovascular: Positive: RRR Abdomen Description: Positive: Nontender, Soft Bowel Sounds: Positive: Present Musculoskeletal: Positive: Strength/ROM Intact Neurological: Positive: Alert, Oriented to Person Place, Time Psychiatric: Positive: Anxious Diagnostics - Vital Signs Vital Signs Temp Pulse Resp BP Pulse Ox 01/05/17 22:26 98.5 F 91 18 106/83 98 - Laboratory Lab Results: Lab Results 01/05/17 01/05/17 Range/Units 23:36 23:36 WBC 10.5 (3.5-10.8) 10^3/ul RBC 3.93 L (4.0-5.4) 10^6/ul Hgb 12.0 (12.0-16.0) g/dl Hct 35 (35-47) % MCV 90 (80-97) fL MCH 31 (27-31) pg MCHC 34 (31-36) g/dl RDW 14 (10.5-15) % Plt Count 293 (150-450) 10^3/ul MPV 8 (7.4-10.4) um3 Neut % (Auto) 59.7 (38-83) % Lymph % (Auto) 28.9 (25-47) % Hamblen % (Auto) 6.9 (1-9) % Eos % (Auto) 3.5 (0-6) % Baso % (Auto) 1.0 (0-2) % Absolute Neuts (auto) 6.3 (1.5-7.7) 10^3/ul Absolute Lymphs (auto) 3.0 (1.0-4.8) 10^3/ul Absolute Monos (auto) 0.7 (0-0.8) 10^3/ul Absolute Eos (auto) 0.4 (0-0.6) 10^3/ul Absolute Basos (auto) 0.1 (0-0.2) 10^3/ul Absolute Nucleated RBC 0 10^3/ul Nucleated RBC % 0 Sodium 136 (133-145) mmol/L Potassium 3.5 (3.5-5.0) mmol/L Chloride 105 (101-111) mmol/L Carbon Dioxide 23 (22-32) mmol/L Anion Gap 8 (2-11) mmol/L BUN 13 (6-24) mg/dL Creatinine 0.77 (0.51-0.95) mg/dL Est GFR ( Amer) 107.3 (>60) Est GFR (Non-Af Amer) 83.5 (>60) BUN/Creatinine Ratio 16.9 (8-20) Glucose 78 (70-100) mg/dL Calcium 8.7 (8.6-10.3) mg/dL Total Bilirubin 0.60 (0.2-1.0) mg/dL AST 12 L (13-39) U/L ALT 11 (7-52) U/L Alkaline Phosphatase 41 (34-104) U/L Total Protein 6.4 (6.4-8.9) g/dL Albumin 3.8 (3.2-5.2) g/dL Globulin 2.6 (2-4) g/dL Albumin/Globulin Ratio 1.5 (1-3) TSH 1.39 (0.34-5.60) mcIU/mL Salicylates < 2.50 (<30) mg/dL Acetaminophen < 15 mcg/mL Serum Alcohol 59 H (<10) mg/dL Result Diagrams: 01/05/17 23:36 01/05/17 23:36 Lab Statement: Any lab studies that have been ordered have been reviewed, and results considered in the medical decision making process. Re-Evaluation - Re-Evaluation First Eval Comment: pt seen by crisis, will keep overnoght and d/c in am Course/Dx - Course Assessment/Plan: Pt is a 41 y/o F who comes to ED p/w anxiety, stating "I don't know what to do, I don't know where to go." Reports that she was discharged from a unit 2 days ago after a month and a half stay and she has an appointment to be admitted to [facility] tomorrow. She has been staying with her mom but mickie was planning on staying with a friend. However, now her friend is not responding to her calls. Denies SI, HI. PMHx anxiety, depression. - Differential Dx/Clinical Impression Provider Diagnosis: Generalized anxiety disorder Discharge - Discharge Plan Condition: Fair Disposition: HOME The documentation as recorded by the Chico mccarthy Rebecca accurately reflects the service I personally performed and the decisions made by me, Daniele Grande MD.
[2017-01-06] MEDS ORDERED: clonazePAM TAB(*) 1 MG PO ONE (05:14)
[2017-01-06] MEDS ORDERED: clonazePAM TAB(*) 0.5 MG PO ONE (05:20)
[2017-01-06 10:49] VITALS: BP 124/80
== END 2017-01-06 09:45 | disposition home or self-care (01) ==
LOC: ED 22:24
DX: F41.9 Anxiety disorder, unspecified (principal); F17.210 Nicotine dependence, cigarettes, uncomplicated
CPT/HCPCS: 36415; 80053; 80320; 80329; 84443; 85025; 99283; A9270-GY; G0480

== ENCOUNTER 2017-07-13 17:13 | Emergency (ER) | payer MEDICAID ==
[2017-07-13 17:26] VITALS: BP 103/70
[2017-07-13] MEDS ORDERED: Lidocaine 1%* 5 ML VIAL INJ ONE (17:36)
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
[2017-07-13] MEDS ORDERED: Lidocaine 1% MPF* 2 ML VIAL ONE (17:45)
--- NOTE | 2017-07-13 18:19 | RAD ---
Indication: Left foot pain and injury. 3 views of left foot demonstrates no fracture. No other bone or joint abnormality is identified. No other bone or joint abnormality is identified. IMPRESSION: No radiopaque foreign body is noted. No fracture is noted.
== END 2017-07-13 18:30 | disposition home or self-care (01) ==
LOC: UCEAST 17:13
DX: S91.312A Laceration without foreign body, left foot, initial encounter (principal); W25.XXXA Contact with sharp glass, initial encounter; Y93.9 Activity, unspecified; Y92.9 Unspecified place or not applicable; J45.909 Unspecified asthma, uncomplicated; F41.9 Anxiety disorder, unspecified; F32.9 Major depressive disorder, single episode, unspecified; F17.210 Nicotine dependence, cigarettes, uncomplicated
CPT/HCPCS: 12001; 99212; G0463

== ENCOUNTER 2018-09-18 19:48 | Inpatient (IN) | payer OTHER ==
--- NOTE | 2018-09-18 20:05 | ED ---
Psychiatric Complaint - HPI Summary HPI Summary: Pt is a 43 y/o female who presents to the ED c/o SI. She gets Abilify IM injections every 20 days, and missed her dose last week because she didnt have a car. Pt felt fine for several days but then began to have worsening depression , stress, and SI. When shes gone through Abilify withdrawal before she gets negative symptoms. She also has a current cold and c/o cough and congestion. Pain is rated a 4/10 in severity. She is a smoker and admits to using cocaine last week. PMHx anxiety, depression, schizophrenia. - History Of Current Complaint Chief Complaint: EDMentalHealth Time Seen by Provider: 09/18/18 20:02 Hx Obtained From: Patient Hx Last Menstrual Period: [id number] Onset/Duration: Gradual Onset, Lasting Days - several, Worse Since Timing: Constant Character: Depressed Aggravating Factor(s): Medication Non-compliance - missed Abilify injection Alleviating Factor(s): Nothing Related History: Positive For: Prior Psychiatric Issues Has Suicidal: Reports: Thoughts - Allergies/Home Medications Allergies/Adverse Reactions: Allergies Allergy/AdvReac Type Severity Reaction Status Date / Time No Known Allergies Allergy Verified 09/18/18 19:56 PMH/Surg Hx/FS Hx/Imm Hx Endocrine/Hematology History: Denies: Hx Anticoagulant Therapy Respiratory History: Reports: Hx Asthma - pt denies, Hx Chronic Bronchitis, Hx Pneumonia Sensory History: Denies: Hx Cataracts, Hx Contacts or Glasses, Hx Hearing Aid, Hx Hearing Problem Opthamlomology History: Denies: Hx Cataracts, Hx Contacts or Glasses Psychiatric History: Reports: Hx Anxiety, Hx Depression, Hx Schizophrenia Denies: Hx of Violent Episodes Against Others Infectious Disease History: No Infectious Disease History: Denies: Hx Clostridium Difficile, Traveled Outside the US in Last 30 Days - Family History Known Family History: Positive: Other - Mother - hx of ovarian cysts - Social History Alcohol Use: Weekly Hx Substance Use: No Substance Use Type: Reports: None Hx Tobacco Use: Yes Smoking Status (MU): Current Every Day Smoker Type: Cigarettes Amount Used/How Often: "4-5 CIGARETTES A DAY" Have You Smoked in the Last Year: Yes Review of Systems Positive: Other - congestion Positive: Cough Positive: Depressed, Other - stressed, SI All Other Systems Reviewed And Are Negative: Yes Physical Exam - Summary Physical Exam Summary: Appearance: well appearing, no pain distress Skin: warm, dry, reflects adequate perfusion Head/face: normal Eyes: EOMI, GRACIA ENT: mucous membranes moist Neck: supple, non-tender Respiratory: CTA, breath sounds present Cardiovascular: RRR, pulses symmetrical Abdomen: non-tender, soft Bowel Sounds: present Musculoskeletal: normal, strength/ROM intact Neuro: normal, sensory motor intact, A&Ox3 Psych: withdrawn and depressed affect, no active SI Triage Information Reviewed: Yes Vital Signs On Initial Exam: Initial Vitals Temp Pulse Resp BP Pulse Ox 99.7 F 98 16 117/73 98 09/18/18 19:50 09/18/18 19:50 09/18/18 19:50 09/18/18 19:50 09/18/18 19:50 Vital Signs Reviewed: Yes Diagnostics - Vital Signs Vital Signs Temp Pulse Resp BP Pulse Ox 09/18/18 19:50 99.7 F 98 16 117/73 98 - Laboratory Result Diagrams: 09/18/18 20:12 09/18/18 20:12 Lab Statement: Any lab studies that have been ordered have been reviewed, and results considered in the medical decision making process. - Radiology CXR Radiology Interpretation Completed By: ED Physician Summary of Radiographic Findings: No acute disease. Pending official radiology report. Re-Evaluation - Re-Evaluation First Eval Re-Evaluation Time: 20:45 Change: Unchanged Comment: Pt is medically cleared for a [facility]. Course/Dx - Course Course Of Treatment: Patient with a history of schizophrenia not on her injectable medication for 1 week with worsening depression and suicidal thoughts. She was medically evaluated and cleared for psychiatric evaluation. She also has upper respiratory infection with a negative chest x-ray. She was treated with albuterol and Mucinex D. After crisis evaluation she was elected for admission for psychiatric treatment. - Differential Dx/Clinical Impression Differential Diagnosis/HQI/PQRI: Positive: Other - URI, pneumonia, medication noncompliance, schizoaffective disorder, schizophrenia Provider Diagnosis: Schizophrenia, Upper respiratory infection - Physician Notifications Discussed Care Of Patient With: Tito Hernandez Time Discussed With Above Provider: 22:30 Instructed by Provider To: Admit As Inpatient Discharge - Sign-Out/Discharge Documenting (check all that apply): Patient Departure - Admit All imaging exams completed and their final reports reviewed: No Studies Patient Received Moderate/Deep Sedation with Procedure: No - Discharge Plan Condition: Stable Dis[place] [place] Disposition and Condition Condition: STABLE Disposition: Psychiatric Facility [facility] - Attestation Statements Document Initiated by Love: Yes Documenting Scribe: Petra Kelsey Provider For Whom Roosevelte is Documenting (Include Credential): Deniz Torres MD Scribe Attestation: Petra Romo, scribed for Deniz Torres MD on 09/19/18 at 0306. Scribe Documentation Reviewed: Yes Provider Attestation: The documentation as recorded by the Petra mccarthy accurately reflects the service I personally performed and the decisions made by Deniz beck MD Status of Scribe Document: Viewed
[2018-09-18] MEDS ORDERED: Aripiprazole Maintena (NF) 300 MG SYRINGE IM ONE (20:08)
[2018-09-18 20:29] LABS: ABS Eosinophils 0.3 10^3/ul (0-0.6); ABS Monocytes 0.7 10^3/ul (0-0.8); ABS Neutrophils 6.5 10^3/ul (1.5-7.7); Eosinophil % 3.7 %; Hematocrit 36 % (35-47); Hemoglobin 12.3 g/dL (12.0-16.0); Mean Corpuscular HGB Conc 34 g/dL (31-36); Mean Corpuscular Hemoglobin 30 pg (27-31); Mean Corpuscular Volume 89 fL (80-97); Mean Platelet Volume 7.8 fL (7.4-10.4); Platelet Count 291 10^3/uL (150-450); Red Blood Count 4.05 10^6 /uL (3.70-4.87); Red Cell Distribution Width 15 % (10.5-15); White Blood Count 8.6 10^3/uL (3.5-10.8)
[2018-09-18 20:35] LABS: ALT 8 U/L (7-52); AST 8 U/L (13-39); Albumin 3.9 g/dL (3.2-5.2); Albumin/Globulin Ratio 1.4 (1-3); Alkaline Phosphatase 43 U/L (34-104); Anion Gap 4 mmol/L (2-11); Blood Urea Nitrogen 6 mg/dL (6-24); CO2 Carbon Dioxide 30 mmol/L (22-32); Calcium 8.9 mg/dL (8.6-10.3); Chloride 103 mmol/L (101-111); EGFR Non-African American 85.2 (>60); Globulin 2.7 g/dL (2-4); Glucose 89 mg/dL (70-100); Potassium 3.6 mmol/L (3.5-5.0); Sodium 137 mmol/L (135-145); Total Protein 6.6 g/dL (6.4-8.9)
[2018-09-18 20:41] LABS: HCG Pregnancy < 0.60 mIU/mL
[2018-09-18 20:43] LABS: Acetaminophen < 15 mcg/mL; Alcohol < 10 mg/dL (<10); Salicylate < 2.50 mg/dL (<30)
[2018-09-18 20:53] LABS: Urine Appearance Cloudy; Urine Bacteria Absent (Absent); Urine Bilirubin Negative (Negative); Urine Blood Negative (Negative); Urine Color Yellow; Urine Glucose Negative (Negative); Urine Ketones Trace (Negative); Urine Nitrite Negative (Negative); Urine Protein Negative (Negative); Urine Red Blood Cell 2+(6-10/hpf) (Absent); Urine Squamous Epithelial Cell Present (Absent); Urine Urobilinogen Negative (Negative); Urine White Blood Cell Trace(0-5/hpf) (Absent)
[2018-09-18 20:55] LABS: TSH (Thyroid Stimulating Horm) 0.52 mcIU/mL (0.34-5.60)
[2018-09-18 20:56] LABS: Urine Benzodiazepine Screen None Detected (None Detect); Urine Opiates Screen None Detected (None Detect)
[2018-09-18] MEDS ORDERED: Albuterol HFA INHALER* 8 gm MDI INH ONE (21:06)
[2018-09-18] MEDS ORDERED: Guaifenesin/Pseudo 600/60(NF) TAB (Mucinex D) PO ONE (21:07)
[2018-09-18] MEDS ORDERED: Pseudoephedrine TAB* 60 MG PO ONE (21:30)
[2018-09-18] MEDS ORDERED: guaiFENesin ER TAB 600 MG PO ONE (21:30)
[2018-09-19] MEDS ORDERED: Al Hydrox/Mg Hydrox/Simet LIQ* 30 ML UDC PO PRN (00:07)
[2018-09-19] MEDS ORDERED: Nicotine* 2MG (FRUIT FLAVOR) GUM PO PRN (00:07)
[2018-09-19 06:51] LABS: HDL Cholesterol 42.4 mg/dL
[2018-09-19] MEDS: Nicotine PATCH 21 MG/24 HR* PATCH TRANSDERM SCH (10:01)
[2018-09-19] MEDS: Vitamin THERAPEUTIC TAB PO SCH (10:01)
[2018-09-19 11:04] VITALS: BP 102/63
[2018-09-19] MEDS: Acetaminophen TAB* 325 MG PO PRN ×2 (11:14→19:05)
[2018-09-19] MEDS: ARIPiprazole TAB* 15 MG PO SCH (12:45)
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
[2018-09-19] MEDS: GuaiFENesin DM* 5 ML UDC PO PRN (19:05)
[2018-09-19] MEDS: Nicotine Patch Removal NOTE PATCH OFF SCH (19:53)
[2018-09-19] MEDS: Albuterol HFA INHALER* 8 gm MDI INH PRN (20:14)
[2018-09-19] MEDS: clonazePAM TAB(*) 1 MG PO PRN (20:14)
[2018-09-20] MEDS: ARIPiprazole TAB* 15 MG PO SCH (10:21)
[2018-09-20] MEDS: Vitamin THERAPEUTIC TAB PO SCH (10:21)
[2018-09-20] MEDS: GuaiFENesin DM* 5 ML UDC PO PRN ×2 (10:22→20:17)
[2018-09-20] MEDS: Nicotine PATCH 21 MG/24 HR* PATCH TRANSDERM SCH (10:22)
--- NOTE | 2018-09-20 11:52 | PN ---
BSU: Group Therapy Note - Service Type Service Type: 34389 Group Psychotherapy - Cognitive Behavioral Group Therapy ( CBT):Patient attended CBT programming this morning and presented with flat affect that did not vary with discussion. Although responsive to direct prompts to respond to questions, patient did not engage in spontaneous conversation.
[2018-09-20] MEDS: Albuterol HFA INHALER* 8 gm MDI INH PRN ×2 (12:21→20:17)
[2018-09-20] MEDS: Acetaminophen TAB* 325 MG PO PRN (12:22)
--- NOTE | 2018-09-20 14:43 | PN ---
Subjective - Subjective Date of Service: 09/20/18 Service Type: 07679 Hosp care 25 min moderate complexity Subjective: Patient agrees to suggestion to obtain GARCIA and continue oral aripiprazole [id number] due. When discussing it has been >6weeks since last injection, she states "no wonder I'm freaking out." Encouraged to explain subjectively and she endorses suicidal ideation, feeling overwhelmed and stressed. She inquires about strattera for distractibility and lethargy. She states she has been using this and adderall "off the streets" with efficacy. Objective - General Observations Appearance: Disheveled Stature: WNL Posture: Slumped Eye Contact: Average Behavior/Activity: Slowed - Interaction Observations Attitude Towards Examiner: Cooperative Stated Mood: Dysphoric Affect: Flat Speech Pattern/Tone: Clear, Perseverating Thought Process: Coherent Perception: WNL Thought Content: WNL Thought Process: Lethality: Passive Wish, Suicidal Planning Hallucination Type: None Delusion Type: None - Cognitive Function Orientation: A&O x 4 Level of Consciousness: Alert Cognition: WNL Estimated Intelligence: Normal Insight: Mostly Blames Others for Problems Judgment Within Normal Limits: No Ability to Make Reasonable Decisions: Serverely Impaired - Medication Compliance Cooperative with Inpatient Medication Regimen: Yes - Group Participation Participates in Group Activities: No Assessment - Assessment Merits Inpatient Hospitalization: For Immediate Safety, For Stabilization Inpatient DSM-V Dx: F20.81 Clinical Impression: 43yo wf, domiciled, employed, mentally disabled who presented to ED with suicidal ideation and plan to slit her wrists. She continues to endorse SI and depressive symptoms. She merits hospitalization for immediate safety and stabilization. Plan - Plan Treatment Plan: Name: IRLANDA LIN Birthdate: 1975 [id number] continue acute intensive psychiatric treatment. give abilify GARCIA today, continue oral coverage [id number]. add strattera 40mg daily discharge planning to include outpatient providers. Continued Medication Management: Start Medication Medications: Current Medications Acetaminophen (Tylenol Tab*) 650 mg PO Q4H PRN PRN Reason: PAIN or TEMP > 101 F Last Admin: 09/20/18 12:22 Dose: 650 mg Al Hydrox/Mg Hydrox/Simethicone (Maalox Plus*) 30 ml PO Q4H PRN PRN Reason: INDIGESTION Albuterol (Ventolin Hfa Inhaler*) 2 puff INH Q4H PRN PRN Reason: SHORTNESS OF BREATH Last Admin: 09/20/18 12:21 Dose: 2 puff Aripiprazole (Abilify Tab*) 15 mg PO DAILY [facility] Last Admin: 09/20/18 10:21 Dose: 15 mg Atomoxetine HCl (Strattera (Nf)) 40 mg PO DAILY [facility]; Protocol Clonazepam (Klonopin Tab(*)) 1 mg PO BID PRN PRN Reason: MD DISCRETION Last Admin: 09/19/18 20:14 Dose: 1 mg Guaifenesin/Dextromethorphan (Robitussin Dm*) 5 ml PO Q6H PRN PRN Reason: COUGH Last Admin: 09/20/18 10:22 Dose: 5 ml Multivitamins (Theragran Tab*) 1 tab PO DAILY [facility] Last Admin: 09/20/18 10:21 Dose: 1 tab Nicotine (Nicotine Patch 21 Mg/24 Hr*) 1 patch TRANSDERM DAILY [facility] Last Admin: 09/20/18 10:22 Dose: 1 patch Nicotine Polacrilex (Nicotine Gum*) 2 mg PO Q2H PRN PRN Reason: CRAVINGS Pharmacy Profile Note (Nicotine Patch Removal Note*) 1 note PATCH OFF [address] [facility] Last Admin: 09/19/18 19:53 Dose: Not Given - Discharge Plan Discharge Plan: Inpatient Hospitalization
[2018-09-20] MEDS: clonazePAM TAB(*) 1 MG PO PRN (20:17)
[2018-09-20] MEDS: Nicotine Patch Removal NOTE PATCH OFF SCH (21:33)
[2018-09-21] MEDS: ARIPiprazole TAB* 15 MG PO SCH (10:14)
[2018-09-21] MEDS: Nicotine PATCH 21 MG/24 HR* PATCH TRANSDERM SCH (10:14)
[2018-09-21] MEDS: Vitamin THERAPEUTIC TAB PO SCH (10:14)
--- NOTE | 2018-09-21 10:57 | DCNOTE ---
Subjective - Subjective Service Types: 74080 Hosp DC Day Mgmt complex over 30 min Discharge Date: 09/21/18 Subjective: Patient reports desire to pursue [facility] and [facility] services. She states desire to be discharged today and to return to work this evening. She denies SI or passive wish. She denies AH/VH or delusions. Objective - General Observations Appearance: Well Groomed Stature: Thin Posture: WNL Behavior/Activity: WNL - Interaction Observations Attitude Towards Examiner: Cooperative Stated Mood: Euthymic Affect: Full Speech Pattern/Tone: Clear, Appropriate, Normal Volume Thought Process: Coherent, Goal Directed Perception: WNL Thought Content: WNL Hallucination Type: Denies Delusion Type: Denies - Cognitive Function Orientation: A&O x 4 Level of Consciousness: Alert Cognition: WNL Estimated Intelligence: Normal Insight: WNL Judgment Within Normal Limits: Yes - Medication Compliance Cooperative with Inpatient Medication Regimen: Yes - Group Participation Participates in Group Activities: No DC Assessment - Assessment Clinical Impression: 43yo wf, domiciled, employed, mentally disabled who presented to ED with suicidal ideation and plan to slit her wrists. She missed her most recent appointment for Abilify GARCIA over 6 weeks ago. She was given Abilify lauroxil 662mg on 09/20/18 in hospital and will continue on 15mg PO coverage for 2 weeks. She refuses referral for substance use treatment. Merits Inpatient Hospitalization: No Clear for Discharge: Adequate Clinical Respons, Acceptable Safety Profile, Low Utility of Inpt Care Inpatient DSM-V Dx: F20.81 Discharge Planning - Discharge Planning Discharge Plan: Outpatient Follow Up Outpatient Program: [facility] Recommendations for Continuing Care: Medication Management, Substance Abuse Counseling Medications: Current Medications Albuterol (Ventolin Hfa Inhaler*) 2 puff INH Q4H PRN PRN Reason: SHORTNESS OF BREATH Last Admin: 09/20/18 20:17 Dose: 2 puff Aripiprazole (Abilify Tab*) 15 mg PO DAILY [facility] Last Admin: 09/21/18 10:14 Dose: 15 mg Atomoxetine HCl (Strattera (Nf)) 40 mg PO DAILY [facility]; Protocol Last Admin: 09/21/18 10:14 Dose: 40 mg Clonazepam (Klonopin Tab(*)) 1 mg PO BID PRN PRN Reason: MD DISCRETION Last Admin: 09/20/18 20:17 Dose: 1 mg Guaifenesin/Dextromethorphan (Robitussin Dm*) 5 ml PO Q6H PRN PRN Reason: COUGH Last Admin: 09/20/18 20:17 Dose: 5 ml Multivitamins (Theragran Tab*) 1 tab PO DAILY [facility] Last Admin: 09/21/18 10:14 Dose: 1 tab Discharge Planning: Prescriptions provided for discharge [x] Yes [] No Follow up care details as per social work arrangements: [facility]- [place] [facility] Patient response to discharge plan: [x] eager for discharge [x] agreeable with discharge plan [] ambivalent about discharge [] disagrees with discharge today
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
== END 2018-09-21 13:50 | disposition home or self-care (01) | DRG 750 ==
LOC: ED 19:48 → BSU 22:42
PROVIDERS: ADMIT Psychiatry & Neurology Psychiatry; ATTEND Psychiatry & Neurology Psychiatry
PROC: GZHZZZZ Group Psychotherapy (ICD-10-PCS; principal; 2018-09-18)
DX: F20.81 Schizophreniform disorder (principal); R45.851 Suicidal ideations; J45.909 Unspecified asthma, uncomplicated; F41.9 Anxiety disorder, unspecified; J42 Unspecified chronic bronchitis; F32.9 Major depressive disorder, single episode, unspecified; F17.210 Nicotine dependence, cigarettes, uncomplicated; F12.90 Cannabis use, unspecified, uncomplicated; F14.90 Cocaine use, unspecified, uncomplicated; F98.8 Other specified behavioral and emotional disorders with onset usually occurring in childhood and adolescence; Z72.89 Other problems related to lifestyle; Z91.14 Patient's other noncompliance with medication regimen; Z80.41 Family history of malignant neoplasm of ovary
CPT/HCPCS: 36415; 71046; 80053; 80061; 80307; 80320; 80329; 81003; 81015; 83036; 84443; 84702; 85025; 87086; 90853; 99222; 99232; 99238; 99284; A9270-GY; G0480

== ENCOUNTER 2018-09-28 23:40 | Emergency (ER) | payer OTHER ==
[2018-09-29 02:19] VITALS: BP 130/92
== END 2018-09-29 02:20 | disposition left against medical advice (07) ==
LOC: ED 23:40
DX: R06.02 Shortness of breath (principal); Z53.21 Procedure and treatment not carried out due to patient leaving prior to being seen by health care provider
CPT/HCPCS: 99282

== ENCOUNTER 2021-04-18 18:56 | Inpatient (IN) ==
[2021-04-18 21:17] LABS: Urine Appearance Clear; Urine Bilirubin Negative (Negative); Urine Blood 3+ (Negative); Urine Color Yellow; Urine Glucose Negative (Negative); Urine Ketones Negative (Negative); Urine Nitrite Negative (Negative); Urine Protein 1+(30 mg/dL) (Negative); Urine Specific Gravity 1.028 (1.002-1.030); Urine Urobilinogen Negative (Negative)
[2021-04-18 21:18] LABS: ABS Basophils 0.1 10^3/ul (0-0.2); ABS Eosinophils 0.1 10^3/ul (0-0.6); ABS Lymphocytes 2.4 10^3/ul (1.0-4.8); ABS Neutrophils 7.9 10^3/ul (1.5-7.7); Eosinophil % 1.1 %; Hematocrit 30 % (35-47); Lymphocyte % 21.1 %; Mean Corpuscular HGB Conc 33 g/dL (31-36); Mean Corpuscular Hemoglobin 28 pg (27-31); Mean Corpuscular Volume 85 fL (80-97); Mean Platelet Volume 7.5 fL (7.4-10.4); Platelet Count 305 10^3/uL (150-450); Red Blood Count 3.56 10^6 /uL (3.70-4.87); Red Cell Distribution Width 17 % (10-15); White Blood Count 11.5 10^3/uL (3.5-10.8)
[2021-04-18 21:19] LABS: ALT 11 U/L (7-52); AST 11 U/L (13-39); Albumin 3.6 g/dL (3.2-5.2); Albumin/Globulin Ratio 1.6 (1-3); Alkaline Phosphatase 38 U/L (35-149); Anion Gap 4 mmol/L (2-11); Blood Urea Nitrogen 15 mg/dL (6-24); CO2 Carbon Dioxide 27 mmol/L (22-32); Calcium 8.6 mg/dL (8.6-10.3); Chloride 105 mmol/L (101-111); Globulin 2.3 g/dL (2-4); Glucose 96 mg/dL (70-100); Potassium 3.9 mmol/L (3.5-5.0); Sodium 136 mmol/L (135-145); Total Protein 5.9 g/dL (6.4-8.9); eGFR CKD-EPI 112.5 (>60)
[2021-04-18 21:21] LABS: Acetaminophen < 15 mcg/mL; Alcohol, S < 13 mg/dL (<13); Salicylate < 2.50 mg/dL (<30)
[2021-04-18 21:23] LABS: Urine Bacteria 1+ (Absent); Urine Red Blood Cell 3+(>10/hpf) (Absent); Urine Squamous Epithelial Cell Present (Absent); Urine White Blood Cell Trace(0-5/hpf) (Absent)
[2021-04-18 21:27] LABS: HCG Pregnancy < 0.60 mIU/mL
[2021-04-18 21:48] LABS: Urine Benzodiazepine Screen None Detected (None Detect); Urine Cannabinoids Screen None Detected (None Detect); Urine Opiates Screen None Detected (None Detect)
[2021-04-19 03:24] LABS: Rapid COVID-19 Molecular Undetected (Undetected)
[2021-04-19] MEDS ORDERED: Al Hydrox/Mg Hydrox/Simet LIQ 30 ML UDC PO PRN (04:36)
[2021-04-19] MEDS ORDERED: Nicotine GUM 2MG FRUIT FLAVOR PO PRN (05:00)
[2021-04-19 10:32] LABS: Magnesium 2.1 mg/dL (1.9-2.7); Phosphorus 3.6 mg/dL (2.5-5.0)
[2021-04-19 10:58] LABS: Vitamin B12 289 pg/mL (180-914)
[2021-04-19] MEDS ORDERED: OLANzapine 5 mg TAB*ODT PO PRN (13:01)
[2021-04-19] MEDS: Nicotine PATCH 21 MG/24 HR PATCH TRANSDERM SCH (14:36)
[2021-04-19] MEDS: Vitamin THERAPEUTIC TAB PO SCH (14:36)
[2021-04-20] MEDS: Nicotine PATCH 21 MG/24 HR PATCH TRANSDERM SCH (10:50)
[2021-04-20] MEDS: Vitamin THERAPEUTIC TAB PO SCH (10:50)
[2021-04-20] MEDS ORDERED: Aripiprazole Maintena (NF) 300 MG SYRINGE IM SCH (11:00)
[2021-04-20 11:08] VITALS: BP 121/74
[2021-04-21 23:55] LABS: % Iron Saturation 10 % (14 - 50); Total Iron Binding Capacity 330 mcg/dL (250 - 400)
== END 2021-04-20 14:31 | disposition home or self-care (01) | DRG 897 ==
LOC: ED 18:56 → BSU 04-19 02:33
PROVIDERS: ADMIT Psychiatry & Neurology Psychiatry; ATTEND Psychiatry & Neurology Psychiatry